=== PATIENT | male | born 1970 | race Caucasian/White ===

== ENCOUNTER → 2019-12-13 08:25 | Outpatient (BNVA) | payer OTHER, SELFPAY | PROVIDERS: Referring Provider Nurse Practitioner Family; Visit Provider Nurse Practitioner Family | DX: R06.02 Shortness of breath (principal); R05 Cough; J06.9 Acute upper respiratory infection, unspecified | CPT/HCPCS: 71046 ==

== ENCOUNTER 2021-05-12 13:01 | Inpatient (IN) | payer OTHER, SELFPAY ==
[2021-05-12] VITALS (20 sets, daily range): BP systolic 118–133; BP diastolic 77–93; PULSE 73–92; RESP 18–39; TEMP 36.5–36.8; O2SAT 87–97; BMI 26.0; BMI 26.5
--- NOTE | 2021-05-12 13:12 | W.ED.SOB ---
HPI - SOB/Dyspnea General: Chief Complaint: ER Hold Stated Complaint: SOB Time Seen by Provider: 05/12/21 13:02 History of Present Illness: HPI Narrative: 51-year-old male presents to the emergency room with complaint of sudden onset of shortness of breath last last approximately 12 hours. Patient was COVID positive at the beginning of the year on arrival here he is hypoxic with acute respiratory failure his O2 sat on nasal cannula at 4 to 6 L/min is 87 and 88% he has some right-sided chest discomfort. He continues to have a nonproductive cough. No radiation of pain into the neck or arms. He has no known history of coronary artery disease. He was seen earlier this week at another local hospital was diagnosed with pneumonia and treated with oral antibiotics. MD elicited complaint: shortness of breath and cough Onset (ago): week(s) (1) Context: recent illness (COVID) Timing: constant Severity: severe Exacerbating factors: exertion, movement and coughing Relieving factors: oxygen and rest Associated symptoms: Reports chest congestion, chest pain and cough; Deny abdominal pain, diaphoresis, dizziness, extremity pain, fever(s), hemoptysis, lightheadedness, myalgias, nausea, orthopnea, palpitations, paresthesias, polydipsia, polyuria, rash, sense of impending doom, syncope or vomiting Treatment prior to arrival: oxygen Review of Systems Const: Denies: fever(s) or diaphoresis ENMT: Denies: throat pain, ear or mastoid pain, nasal discharge or nasal congestion Card: Reports: chest pain; Denies: palpitations, lightheadedness, syncope or orthopnea Resp: Reports: dyspnea, non-productive cough, pain on inspiration and chest congestion; Denies: hemoptysis GI: Denies: abdominal pain, nausea or vomiting : Denies: flank pain, dysuria, urinary frequency or urinary urgency Musc: Denies: extremity pain Skin/Breast: Denies: rash or pruritus Neuro: Denies: dizziness Endo: Denies: polyuria or polydipsia PFS ED PFSH: Medical History Chronic nasal congestion Dizziness of unknown etiology Nasal congestion due to prolonged use of decongestants Shortness of breath Surgical History Hx of cholecystectomy Family History Other Hypertension Social History Smoking and tobacco status: never smoked Second hand smoke exposure: No Smoking risk assessment/counseling performed?: Yes Alcohol intake: never Lives independently: Yes Household members: none Marital status: service: No Current occupational status: employed 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 History of recent travel: No Current gender identity: Male Physical Exam Const: GENERAL APPEARANCE: cooperative and comfortable HENMT: COMMON NORMALS: normocephalic, atraumatic and hearing grossly normal bilaterally HEAD & SCALP: normocephalic and atraumatic Neck/C-Spine: COMMON NORMALS: no JVD Resp: EFFORT & INSPECTION: Yes respiratory distress and Yes labored AUSCULTATION: rhonchi and wheezes Cardio: COMMON NORMALS: no JVD, regular rate, regular rhythm and No murmurs present (Cardio) RATE: regular rate RHYTHM: regular rhythm GI: COMMON NORMALS: Soft to palpation and No hepatosplenomegaly present AUSCULTATION: Yes normoactive bowel sounds PALPATION: Yes Soft to palpation, No Tenderness to palpation present (GI), No Guarding due to palpation present (GI) and Yes No hepatosplenomegaly present Extremity: COMMON NORMALS: normal to inspection, capillary refill normal, no clubbing, cyanosis or edema, no calf tenderness and no pedal edema Skin: COMMON NORMALS: no rashes or lesions noted GENERAL SKIN EXAM: no rashes or lesions noted Course Vital Signs: Vital signs: Vital Signs Temperature 97.9 F 05/22/21 15:48 Pulse Rate 86 05/22/21 15:48 Respiratory Rate 18 05/22/21 15:48 Blood Pressure 117/65 05/22/21 15:48 Pulse Oximetry 92 05/22/21 15:48 MDM - SOB/Dyspnea MDM Narrative Medical decision making narrative: 88% on room air on presentation improved with nasal cannula at 4 L/min without that he was down to the 70s. We will go ahead and admit him on he heated high flow oxygen. Discussed with hospitalist orders written start remdesivir and dexamethasone Medical Records Attestation: I reviewed the patient's medical records. Lab Data Attestation: I reviewed the patient's lab results. Result diagrams: 05/22/21 04:55 05/22/21 04:55 Labs: Lab Results 05/12/21 05/12/21 05/12/21 13:15 13:15 13:15 WBC 9.0 10^3/uL 10^3/uL (4.0-10.0) RBC 5.48 10^6/uL H 10^6/uL (4.1-5.3) Hgb 16.2 g/dL g/dL (11.7-16.6) Hct 48.3 % % (42.0-52.0) MCV 88.1 fl fl (80-94) MCH 29.6 pg pg (28.0-34.0) MCHC 33.5 g/dL g/dL (30.0-36.0) RDW 12.2 % % (12.1-15.1) Plt Count 402 10^3/cmm H 10^3/cmm (130-400) MPV 10.0 fL fL (7.4-10.4) Neut % (Auto) 91.7 % % Lymph % (Auto) 3.6 % % [place] % (Auto) 3.8 % % Eos % (Auto) 0.0 % % Baso % (Auto) 0.1 % % Neut # (Auto) 8.21 10^3/uL H 10^3/uL (1.8-7.7) Lymph # (Auto) 0.3 10^3/uL L 10^3/uL (0.8-4.8) [place] # (Auto) 0.3 10^3/uL 10^3/uL (0.2-0.9) Eos # (Auto) 0.0 10^3/uL 10^3/uL (0.0-0.8) Baso # (Auto) 0.0 10^3/uL 10^3/uL (0.0-0.1) Nucleated RBC % (auto) 0 % % Nucleated RBCs # 0.0 /100WBC /100WBC Specimen Type Sample Site ABG pH ABG pCO2 ABG pO2 ABG HCO3 ABG O2 Saturation ABG Base Excess Kota Test A-a O2 Gradient Hematocrit Hgb O2 Saturation Carboxyhemoglobin Methemoglobin Total Hemoglobin Ionized Calcium O2 Delivery Device O2 Liters/Min FiO2 Medical Policy Specialist ID Sodium 140 mmol/L mmol/L (136-145) Potassium 4.6 mmol/L mmol/L (3.5-5.1) Chloride 104 mmol/L mmol/L (98-107) Carbon Dioxide 22 mmol/L mmol/L (22-29) Anion Gap 18.6 (5-19) BUN 17 mg/dL mg/dL (6-20) Creatinine 0.8 mg/dL mg/dL (0.7-1.2) GFR Calculation 101.9 mL/min mL/min (90-130) Glucose 99 mg/dL mg/dL (65-115) Calculated Osmolality 292 mOsm/kg mOsm/kg (285-295) Lactic Acid Calcium 8.3 mg/dL L mg/dL (8.5-10.5) Total Bilirubin 0.8 mg/dL mg/dL (0.15-1.2) AST 28 U/L U/L (0-40) ALT 68 U/L H U/L (0-41) Alkaline Phosphatase 106 IU/L IU/L (40-130) Troponin T Baseline 7 ng/L ng/L (0-15) Troponin T 120 Minute Delta Troponin T NT-Pro-B Natriuret Pep 395 pg/mL H pg/mL (0-125) Total Protein 6.0 g/dL L g/dL (6.6-8.7) Albumin 3.5 g/dL g/dL (3.5-5.2) Globulin 2.5 g/dL g/dL (1.3-4.6) 05/12/21 05/12/21 05/12/21 13:15 13:24 14:55 WBC RBC Hgb Hct MCV MCH MCHC RDW Plt Count MPV Neut % (Auto) Lymph % (Auto) [place] % (Auto) Eos % (Auto) Baso % (Auto) Neut # (Auto) Lymph # (Auto) [place] # (Auto) Eos # (Auto) Baso # (Auto) Nucleated RBC % (auto) Nucleated RBCs # Specimen Type Arterial Sample Site Brachial, right ABG pH 7.51 H (7.35-7.45) ABG pCO2 25.5 mmHg L mmHg (35-45) ABG pO2 53.0 mmHg L mmHg (80.0-100.0) ABG HCO3 20.4 mmol/L L mmol/L (22-26) ABG O2 Saturation 88.9 ABG Base Excess -0.8 mmol/L mmol/L (-2.0-2.0) Kota Test N/a A-a O2 Gradient 25.7 mmHg H mmHg (5-10) Hematocrit 49.9 % % (42-52) Hgb O2 Saturation 88.0 % L % (95-100) Carboxyhemoglobin 0.8 %THgb %THgb (0.4-20.1) Methemoglobin 0.3 % L % (0.4-1.5) Total Hemoglobin 16.3 g/dL g/dL (14-18) Ionized Calcium 1.2 mmol/L mmol/L (1.1-1.4) O2 Delivery Device Nc O2 Liters/Min 5.0 % % FiO2 40.0 % % Medical Policy Specialist ID Ed Sodium 139.0 mmol/L mmol/L (131-143) Potassium 4.1 mmol/L mmol/L (3.5-5.0) Chloride Carbon Dioxide Anion Gap BUN Creatinine GFR Calculation Glucose 108.0 mg/dL mg/dL (70-115) Calculated Osmolality Lactic Acid 1.6 mmol/L mmol/L (0.5-2.2) Calcium Total Bilirubin AST ALT Alkaline Phosphatase Troponin T Baseline Troponin T 120 Minute 6.80 ng/L ng/L (0-15) Delta Troponin T -0.20 ABS# L ABS# (0-10) NT-Pro-B Natriuret Pep Total Protein Albumin Globulin Discharge Plan Discharge Patient Disposition: Admitted As Inpatient Admit Provider: Diana Liu Clinical Impression: Pneumonia due to COVID-19 virus, Acute respiratory failure with hypoxia Condition: Stable Discharge Diet: Regular Discharge Activity: Resume usual activity Coding Level of Care Code ED 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
--- NOTE | 2021-05-12 13:13 | XRR_ITS ---
PROCEDURE INFORMATION: Exam: XR Chest Exam date and time: 05/12/2021 1:13 PM Age: 51 years old Clinical indication: Cough and shortness of breath. Recent COVID. Dyspnea. TECHNIQUE: Imaging protocol: XR of the chest. Views: 1 view. COMPARISON: CT angio chest PE prot [id number] 05/12/2021 1:52 PM FINDINGS: Lungs: There are extensive ground-glass and airspace opacities within the peripheral lungs bilaterally that are better appreciated on CT. These imaging findings are commonly reported imaging features of COVID 19 pneumonia. Other processes such as Influenza pneumonia and organizing pneumonia (as can be seen with connective tissue disease and drug toxicity) can cause a similar imaging pattern. No pulmonary consolidation. Pleural spaces: No pleural effusion. No pneumothorax. Heart/Mediastinum: The cardiac silhouette is unchanged. No gross evidence of pneumomediastinum. Bones/joints: No gross fracture. XR/XR chest 1V portable [id number] IMPRESSION: There are extensive ground-glass and airspace opacities within the peripheral lungs bilaterally that are better appreciated on CT. These imaging findings are commonly reported imaging features of COVID 19 pneumonia. Other processes such as Influenza pneumonia and organizing pneumonia (as can be seen with connective tissue disease and drug toxicity) can cause a similar imaging pattern.
--- NOTE | 2021-05-12 13:13 | CTR_ITS ---
PROCEDURE INFORMATION: Exam: CTA Chest With Contrast Exam date and time: 05/12/2021 1:13 PM Age: 51 years old Clinical indication: Shortness of breath. Recent COVID 19. Complains of shortness of breath, cough and fever. Acute respiratory failure with hypoxia. TECHNIQUE: Imaging protocol: Computed tomographic angiography of the chest with contrast. 3D rendering (Not supervised by radiologist): MIP and/or 3D reconstructed images were created by the technologist. Radiation optimization: All CT scans at this facility use at least one of these dose optimization techniques: automated exposure control; mA and/or kV adjustment per patient size (includes targeted exams where dose is matched to clinical indication); or iterative reconstruction. Contrast material: OMNI 350; Contrast volume: 71 ml; Contrast route: INTRAVENOUS (IV); COMPARISON: CR XR chest 2V* [id number] 12/13/2019 8:35 AM RADIATION DOSE METRICS: Total DLP (mGy-cm): 587.49 FINDINGS: Pulmonary arteries: Assessment for pulmonary embolus is compromised by streak artifact. No pulmonary embolus is identified. Aorta: There is aneurysmal dilatation of the ascending thoracic aorta measuring 4.0 x 4.3 cm. There is no gross evidence of rupture. No gross dissection. Lungs: There are extensive ground-glass and airspace opacities bilaterally.These imaging findings are commonly reported imaging features of COVID 19 pneumonia. Other processes such as Influenza pneumonia and organizing pneumonia (as can be seen with connective tissue disease and drug toxicity) can cause a similar imaging pattern. No pulmonary mass. Pleural spaces: No pleural effusion. No pneumothorax. Heart: No pericardial effusion. Lymph nodes: A right hilar lymph node measures 1.4 x 1.4 cm. A subcarinal lymph node measures 1.3 x 2.0 cm. A left hilar lymph node measures 1.2 x 1.4 cm. Diaphragm: Small hiatal hernia. Upper abdomen: The gallbladder has been removed. The spleen is enlarged measuring 14.5 cm. Bones/joints: Comminuted, mildly displaced fracture involving the anterior right 5th rib. Old fracture of the anterior right 4th rib. CT/CT angio chest PE protcl [id number] IMPRESSION: 1. Assessment for pulmonary embolus is compromised by streak artifact. No pulmonary embolus is identified. 2. There is aneurysmal dilatation of the ascending thoracic aorta measuring 4.0 x 4.3 cm. There is no gross evidence of rupture. No gross dissection. 3. There are extensive ground-glass and airspace opacities bilaterally.These imaging findings are commonly reported imaging features of COVID 19 pneumonia. Other processes such as Influenza pneumonia and organizing pneumonia (as can be seen with connective tissue disease and drug toxicity) can cause a similar imaging pattern. 4. Comminuted, mildly displaced fracture involving the anterior right 5th rib. 5. Mediastinal and bilateral hilar lymphadenopathy. 6. Splenomegaly.
--- NOTE | 2021-05-12 13:18 | PC.NURSE ---
Pt placed on continuous cardiac, BP, and O2 monitor at bedside.
[2021-05-12 13:21] LABS: Basophils % 0.1 %; Hematocrit 48.3 % (42.0-52.0); Hemoglobin 16.2 g/dL (11.7-16.6); Lymphocytes # 0.3 10^3/uL (0.8-4.8); Lymphocytes % 3.6 %; Mean Corpuscular HGB Conc 33.5 g/dL (30.0-36.0); Mean Corpuscular Hemoglobin 29.6 pg (28.0-34.0); Mean Corpuscular Volume 88.1 fl (80-94); Monocytes # 0.3 10^3/uL (0.2-0.9); Monocytes % 3.8 %; Neutrophils # 8.21 10^3/uL (1.8-7.7); Neutrophils % 91.7 %; Nucleated Red Blood Cells % 0 %; Platelet Count 402 10^3/cmm (130-400); Red Blood Count 5.48 10^6/uL (4.1-5.3); Red Cell Distribution Width 12.2 % (12.1-15.1)
[2021-05-12 13:34] LABS: ABG PCO2 25.5 mmHg (35-45); ABG PH Result 7.51 (7.35-7.45); Arterial Blood Gas Hematocrit 49.9 % (42-52); Base Excess ABG -0.8 mmol/L (-2.0-2.0); Blood Gas Sample Type Arterial; Carboxyhemoglobin 0.8 %THgb (0.4-20.1); HCO3 ABG 20.4 mmol/L (22-26); Ionized Calcium Level - ABG 1.2 mmol/L (1.1-1.4); Methemoglobin 0.3 % (0.4-1.5); Oxygen Saturation ABG 88.9; Potassium Level - ABG 4.1 mmol/L (3.5-5.0); Total Hemoglobin 16.3 g/dL (14-18)
[2021-05-12 13:35] LABS: Alveolar-Arterial Oxygen Gradi 25.7 mmHg (5-10); Blood Gas Operator Identificat ED; Blood Gas Sample Site Brachial, right; Oxygen Device NC
[2021-05-12 13:39] LABS: Troponin(5th) Baseline 7 ng/L (0-15)
[2021-05-12 13:40] LABS: Lactic Sepsis W/Reflex 1.6 mmol/L (0.5-2.2)
[2021-05-12 13:52] LABS: Alanine Aminotransferase 68 U/L (0-41); Albumin Level 3.5 g/dL (3.5-5.2); Alkaline Phosphatase 106 IU/L (40-130); Blood Urea Nitrogen 17 mg/dL (6-20); Calcium 8.3 mg/dL (8.5-10.5); Carbon Dioxide 22 mmol/L (22-29); Chloride 104 mmol/L (98-107); Globulin 2.5 g/dL (1.3-4.6); Glomerular Filtration Rate 101.9 mL/min (90-130); Glucose 99 mg/dL (65-115); NT Pro B Type Natriuretic Pept 395 pg/mL (0-125); Osmolality Calculated 292 mOsm/kg (285-295); Sodium 140 mmol/L (136-145); Total Bilirubin 0.8 mg/dL (0.15-1.2)
[2021-05-12 13:54] LABS: Anion Gap 18.6 (5-19); Aspartate Amino Transferase 28 U/L (0-40); Potassium 4.6 mmol/L (3.5-5.1)
[2021-05-12] MEDS: iohexol 350 mg/mL 100 mL Btl IV (13:56)
[2021-05-12] MEDS: dexamethasone 10 mg/mL INJ 6 MG IVP (15:53)
[2021-05-12] MEDS: piperacillin-tazobactam 3.375 GM in sodium chloride 0.9% (plus) 50 ML IV (15:53)
[2021-05-12] MEDS: remdesivir 200 MG in sodium chloride 0.9% (100 ml) 60 ML 100 MG IV (16:22)
[2021-05-12] MEDS: levofloxacin-dextrose 5 % 750 MG/150 ML PREMIX 100 MG IV (17:12)
--- NOTE | 2021-05-12 17:33 | PM.HP ---
Providers/Chief Complaint Admitting Physician: Diana Liu MD Chief Complaint: SOB History of Present Illness Saeed Thorpe is a 51 year old male with no significant PMH who presents to ED with dyspnea. Patient tested positive for COVID at [facility] approx 10-12 days ago. Patient noted to be worsening and presented to ED.No chest pain, no fever, no N,V, abdominal symptoms. Patient states he was given some antibiotics. He continued to get worse. Has diffuse myalgias and weakness Evaluation in ED significant for fairly unremarkable routine labs and ABG with ph of 7.51, PCO2 of 25 and PO2 of 52 on Fio2 of 40 percent and 5 L/min. CXR reveals extensive ground glass opacities bilaterally consistent with COVID infection. CTA is negative for PE- extensive infiltrates noted. Patient admitted for further management Patient states he is unvaccinated for COVID Review of Systems General: Reports: 10 or more systems reviewed and unremarkable except in HPI and below Medications/Allergies Home Medications Medication Instructions Recorded Confirmed Last Taken Type Motrin IB 200 mg tablet 200 mg PO Q12H PRN #10 tab NS MDD 02/15/20 05/12/21 Unknown Rx 400 mg fluticasone propionate 50 1 spray INTRANASAL BID #9.9 ml 02/15/20 05/12/21 Unknown Rx mcg/actuation nasal spray,suspension albuterol sulfate 90 mcg/actuation 2 puff INHALATION Q6H PRN #8.5 g 03/17/21 05/12/21 Unknown Rx aerosol inhaler [id number] 7.5 ml PO Q6H PRN #160 ml 03/17/21 05/12/21 Unknown Rx 2 mg-30 mg-10 mg/5 mL oral syrup cefuroxime axetil 500 mg PO BID 05/12/21 05/12/21 05/11/21 History escitalopram oxalate 10 mg PO DAILY 05/12/21 05/12/21 05/11/21 History pantoprazole 40 mg PO DAILY 05/12/21 05/12/21 05/11/21 History Allergies Allergy/AdvReac Type Severity Reaction Status Date / Time No Known Allergies Allergy Verified 06/17/20 11:44 PFSH Acute PFSH: Medical History Nasal congestion due to prolonged use of decongestants Family History Other Hypertension Social History Smoking and tobacco status: never smoked Second hand smoke exposure: No Smoking risk assessment/counseling performed?: Yes Alcohol intake: never Lives independently: Yes Household members: none Marital status: service: No Current occupational status: employed 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 History of recent travel: No Current gender identity: Male Vitals/I&O/Wt Last Vital Signs Temp 97.7 F 05/12/21 13:03 Pulse 80 05/12/21 17:13 Resp 28 H 05/12/21 17:13 BP 118/80 05/12/21 17:13 Pulse Ox 93 05/12/21 17:13 05/12/21 05/12/21 05/12/21 06:59 14:59 22:59 Intake Total 110 / 110 Balance 110 / 110 Weight last 48 hrs Weight 87.09 kg Physical Exam HENMT: COMMON NORMALS: normocephalic and atraumatic Neck/C-Spine: COMMON NORMALS: full ROM, supple and no JVD Chest: COMMONS NORMALS: normal inspection of the chest CHEST: Yes Symmetrical chest wall rise Resp: COMMON NORMALS: clear to auscultation bilaterally EFFORT & INSPECTION: Yes able to speak in complete sentences Cardio: COMMON NORMALS: regular rate, regular rhythm and No murmurs present (Cardio) GI: COMMON NORMALS: Normal to inspection, nondistended, normoactive bowel sounds present Extremity: COMMON NORMALS: normal to inspection and no clubbing, cyanosis or edema Neuro: COMMON NORMALS: patient oriented x3, no focal motor deficits and no sensory deficits noted Skin: COMMON NORMALS: no rashes or lesions noted Data : 05/13/21 05:13 05/13/21 05:13 Micro: Microbiology 05/12/21 13:35 Blood Culture - Preliminary Blood SPECIMEN COLLECTED 05/12/21 13:38 Blood Culture - Preliminary Blood SPECIMEN COLLECTED A&P Assessment and plan (1) Acute hypoxemic respiratory failure due to COVID-19: Patient presents with dyspnea, and is COVID positive. Patient noted to have severe hypoxia with PO2 on ABG of 53. Patient placed on high flow oxygen at FIO2 of 40 percent.CTA with extensive groundglass opacities consistent with COVID infection Decadron 6 mg IV X 10 days, stop date 05/21/21 Remdesivir x 5 days, stop date 05/16/21 He has received a dose of zosyn and levaquin in ED. 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
--- NOTE | 2021-05-12 19:13 | ECG_ITS ---
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
--- NOTE | 2021-05-12 19:33 | PC.NURSE ---
bedside report received, transporting to floor soon.
--- NOTE | 2021-05-12 20:21 | PC.NURSE ---
Admit Note Patient admitted to CT from ED via stretcher. Covering service notified. Patient presents with dry cough, sob. Orders reviewed & will continue to monitor. Patient and/or safety representative oriented to environment, equipment, and informed of the following as found in the admission booklet: patient rights & responsibilities, visitor policy, hand and respiratory hygiene practice. Other education includes: Oxygen safety, medications, activity orders. Patient and/or safety representative verbalized understanding of all teaching.
[2021-05-12 20:24] LABS: Troponin 5 6HR 7.03 ng/L (0-15); Troponin 5 6HR Delta 0.03 ng/L (0-12)
[2021-05-12] MEDS: enoxaparin 40 mg/0.4 mL Syringe SUBCUT (21:24)
[2021-05-13] VITALS (13 sets, daily range): BP systolic 123–136; BP diastolic 56–86; PULSE 58–79; RESP 18–24; TEMP 36.4–36.8; O2SAT 90–95
[2021-05-13] MEDS: HYDROcodone-acetaminophen 7.5-325 mg Tablet 1 TAB PO ×2 (05:10→22:15)
[2021-05-13 05:33] LABS: Basophils % 0.1 %; Hematocrit 42.5 % (42.0-52.0); Hemoglobin 14.5 g/dL (11.7-16.6); Lymphocytes # 0.4 10^3/uL (0.8-4.8); Lymphocytes % 4.4 %; Mean Corpuscular HGB Conc 34.1 g/dL (30.0-36.0); Mean Corpuscular Hemoglobin 29.5 pg (28.0-34.0); Mean Corpuscular Volume 86.6 fl (80-94); Mean Platelet Volume 10.3 fL (7.4-10.4); Monocytes # 0.4 10^3/uL (0.2-0.9); Monocytes % 4.2 %; Neutrophils # 8.23 10^3/uL (1.8-7.7); Neutrophils % 90.4 %; Nucleated Red Blood Cells % 0 %; Platelet Count 403 10^3/cmm (130-400); Red Blood Count 4.91 10^6/uL (4.1-5.3); Red Cell Distribution Width 12.1 % (12.1-15.1); White Blood Count 9.1 10^3/uL (4.0-10.0)
[2021-05-13 06:13] LABS: Anion Gap 18.3 (5-19); Blood Urea Nitrogen 23 mg/dL (6-20); Calcium 8.5 mg/dL (8.5-10.5); Carbon Dioxide 19 mmol/L (22-29); Chloride 102 mmol/L (98-107); Glucose 120 mg/dL (65-115); Osmolality Calculated 285 mOsm/kg (285-295); Potassium 4.3 mmol/L (3.5-5.1); Sodium 135 mmol/L (136-145)
[2021-05-13] MEDS: pantoprazole DR 40 mg Tablet PO (08:05)
[2021-05-13] MEDS: escitalopram 10 mg Tablet PO (08:05)
--- NOTE | 2021-05-13 10:46 | PM.PN ---
Subjective Subjective: Interval history: Patient weak, has c/o dyspnea and cough as well as pleuritic type chest discomfort. Appetite decreased. Medications: Reviewed: Yes Vitals/I&O/Wt Last Vital Signs Temp 98.2 F 05/13/21 08:03 Pulse 79 05/13/21 09:03 Resp 20 H 05/13/21 09:03 BP 126/85 05/13/21 08:03 Pulse Ox 92 05/13/21 09:03 05/12/21 05/13/21 05/13/21 22:59 06:59 14:59 Intake Total 410 / 410 150 / 560 480 / 480 Output Total 400 / 400 775 / 1175 Balance -625 / -615 480 / 480 Weight last 48 hrs Weight 88.813 kg Weight 87.09 kg Physical Exam Narrative: EXAM NARRATIVE: ill appearing, oriented and in mild distress Const: COMMON NORMALS: patient oriented x3 GENERAL APPEARANCE: cooperative HENMT: COMMON NORMALS: normocephalic and atraumatic HEAD & SCALP: normocephalic and atraumatic Neck/C-Spine: COMMON NORMALS: full ROM and supple Resp: EFFORT & INSPECTION: Yes tachypneic and Yes Actively coughing AUSCULTATION: rhonchi lower bilaterally Cardio: COMMON NORMALS: regular rate, regular rhythm, S1 normal heart sound present, S2 normal heart sound present and No murmurs present (Cardio) RATE: regular rate RHYTHM: regular rhythm HEART SOUNDS: S1 normal heart sound present and S2 normal heart sound present GI: COMMON NORMALS: Soft to palpation, non-tender and no masses PALPATION: Yes Soft to palpation Extremity: COMMON NORMALS: normal to inspection, no calf tenderness and no pedal edema Neuro: COMMON NORMALS: patient oriented x3, moves all extremities and no sensory deficits noted Psych: COMMON NORMALS: mental status grossly normal, Normal thought process present and speech normal SPEECH: Yes normal speech THOUGHT PROCESS: Normal thought process present Skin: COMMON NORMALS: no rashes or lesions noted and no wounds GENERAL SKIN EXAM: no rashes or lesions noted Data : 05/13/21 05:13 05/13/21 05:13 Micro: Microbiology 05/12/21 13:35 Blood Culture - Preliminary Blood SPECIMEN COLLECTED 05/12/21 13:38 Blood Culture - Preliminary Blood SPECIMEN COLLECTED A&P Assessment and plan (1) Acute hypoxemic respiratory failure due to COVID-19: Patient presents with dyspnea, and is COVID positive. Patient noted to have severe hypoxia with PO2 on ABG of 53 on arrival to ED. CTA negative for pulmonary embolism, has extensive ground glass opacities consistent with COVID infection. Patient continues to require supplemental oxygen at 40 L/min with 40 percent FIO2 Decadron 6 mg IV X 10 days, stop date 05/21/21 Remdesivir x 5 days, stop date 05/16/21 Afebrile. Procalcitonin ordered- do not think he needs antibiotic coverage- he did receive one dose of zosyn and levaquin in ED Patient unvaccinated for COVID. Continue nebs, supportive care and appropriate isolation precautions At high risk of further deterioration and may require intubation Status: Acute Attestations Medical Necessity Statement*: Patient requires ongoing hospital stay for acute respiratory failure with hypoxia secondary to severe COVID. 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 Fwd History Detailed Exam Detailed Medical Decision Making Moderate Complexity Diagnoses Acute hypoxemic respiratory failure due to COVID-19 U07.1; J96.01
[2021-05-13 12:32] LABS: Procalcitonin 0.29 ng/mL (0-0.5)
[2021-05-13] MEDS: remdesivir 100 MG in sodium chloride 0.9% (100 ml) 80 ML IV (15:48)
[2021-05-13] MEDS: dexamethasone 10 mg/mL INJ 6 MG IVP (18:18)
[2021-05-13] MEDS: enoxaparin 40 mg/0.4 mL Syringe SUBCUT (18:18)
[2021-05-14] VITALS (18 sets, daily range): BP systolic 113–131; BP diastolic 47–88; PULSE 57–107; RESP 18–28; TEMP 36.4–36.9; O2SAT 78–98
[2021-05-14] MEDS: escitalopram 10 mg Tablet PO (07:59)
[2021-05-14] MEDS: pantoprazole DR 40 mg Tablet PO (07:59)
[2021-05-14] MEDS: ipratropium-albuterol 3 mL Neb INHALATION ×3 (08:53→20:24)
[2021-05-14] MEDS: benzonatate 100 mg Capsule 200 MG PO ×3 (10:46→21:55)
[2021-05-14] MEDS: ALPRAZolam 0.5 mg Tablet PO (11:42)
[2021-05-14] MEDS: nicotine 21 mg Patch 1 PATCH TRANSDERMA (15:15)
--- NOTE | 2021-05-14 16:25 | PC.RESP ---
PATIENT STATES THAT HE HAS DILIGENTLY BEEN USING THE IS AND ACAPELLA
[2021-05-14] MEDS: remdesivir 100 MG in sodium chloride 0.9% (100 ml) 80 ML IV (17:33)
[2021-05-14] MEDS: enoxaparin 40 mg/0.4 mL Syringe SUBCUT (17:33)
[2021-05-14] MEDS: dexamethasone 10 mg/mL INJ 6 MG IVP (17:33)
--- NOTE | 2021-05-14 18:59 | P.PN_ITS ---
Subjective Subjective: Interval history: He has been coughing. Gets very easily drained with exertion. Worsened hypoxia today, required increase up to 60% FiO2. Discussed with him additional options with consideration of baricitinib. He stated he would like to for now wait, discussed the risks and benefits. Reassess again tomorrow or day after. Discussed also with his sister. Vitals/I&O/Wt Last Vital Signs Temp 97.6 F 05/14/21 15:26 Pulse 95 05/14/21 16:26 Resp 28 H 05/14/21 16:20 BP 125/84 05/14/21 15:26 Pulse Ox 93 05/14/21 16:20 05/14/21 05/14/21 05/14/21 06:59 14:59 22:59 Intake Total 360 / 360 320 / 680 Output Total 900 / 2000 250 / 250 Balance -900 / -1440 110 / 110 320 / 430 Weight last 48 hrs Weight 88.813 kg Physical Exam Const: COMMON NORMALS: no acute distress and patient oriented x3 GENERAL APPEARANCE: ill appearing OTHER: Coughing intermittently. HENMT: COMMON NORMALS: oropharynx normal Neck/C-Spine: COMMON NORMALS: no JVD Resp: COMMON NORMALS: normal respiratory effort and clear to auscultation bilaterally AUSCULTATION: clear to auscultation bilaterally Cardio: COMMON NORMALS: no JVD, regular rhythm, S1 normal heart sound present, S2 normal heart sound present and No murmurs present (Cardio) RHYTHM: regular rhythm HEART SOUNDS: S1 normal heart sound present and S2 normal heart sound present GI: COMMON NORMALS: Normal to inspection, nondistended, normoactive bowel sounds present, Soft to palpation and non-tender PALPATION: Yes Soft to palpation Extremity: COMMON NORMALS: no joint enlargement and no pedal edema Neuro: COMMON NORMALS: patient oriented x3 and moves all extremities Skin: COMMON NORMALS: no rashes or lesions noted GENERAL SKIN EXAM: no ra shes or lesions noted Data : 05/13/21 05:13 05/13/21 05:13 Micro: Microbiology 05/12/21 13:38 Blood Culture - Preliminary Blood NEGATIVE TO DATE 05/12/21 13:35 Blood Culture - Preliminary Blood NEGATIVE TO DATE A&P Assessment and plan (1) Acute hypoxemic respiratory failure due to COVID-19: Here for now declines baricitinib, would like to reassess again in a day or 2. We will follow-up CRP, follow-up D-dimer. Continue oxygen support. Continue Decadron, remdesivir. Escalate antitussives given bouts of severe cough. Lovenox VT prophylaxis. Supportive care. Status: Acute Attestations Medical Necessity Statement*: Continue admission for hypoxic respiratory failure secondary to severe COVID-19. 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
[2021-05-14] MEDS: HYDROcodone-acetaminophen 7.5-325 mg Tablet 1 TAB PO (21:55)
[2021-05-15] VITALS (17 sets, daily range): BP systolic 106–137; BP diastolic 58–82; PULSE 64–89; RESP 18–22; TEMP 36.5–36.7; O2SAT 92–99
[2021-05-15] MEDS: HYDROcodone-acetaminophen 7.5-325 mg Tablet 1 TAB PO ×3 (03:14→21:33)
[2021-05-15 07:26] LABS: Basophils % 0.1 %; Eosinophils % 0.1 %; Hematocrit 46.3 % (42.0-52.0); Hemoglobin 15.6 g/dL (11.7-16.6); Lymphocytes # 0.7 10^3/uL (0.8-4.8); Lymphocytes % 6.6 %; Mean Corpuscular HGB Conc 33.7 g/dL (30.0-36.0); Mean Corpuscular Hemoglobin 29.7 pg (28.0-34.0); Mean Platelet Volume 10.2 fL (7.4-10.4); Monocytes # 0.7 10^3/uL (0.2-0.9); Monocytes % 6.7 %; Neutrophils # 8.67 10^3/uL (1.8-7.7); Neutrophils % 85.3 %; Nucleated Red Blood Cells % 0 %; Platelet Count 513 10^3/cmm (130-400); Red Blood Count 5.26 10^6/uL (4.1-5.3); Red Cell Distribution Width 12.2 % (12.1-15.1); White Blood Count 10.2 10^3/uL (4.0-10.0)
[2021-05-15 07:41] LABS: D Dimer 0.68 ug/mIFEU (0-0.59)
[2021-05-15 07:55] LABS: Alanine Aminotransferase 77 U/L (0-41); Albumin Level 3.1 g/dL (3.5-5.2); Alkaline Phosphatase 97 IU/L (40-130); Anion Gap 16.4 (5-19); Aspartate Amino Transferase 34 U/L (0-40); Blood Urea Nitrogen 22 mg/dL (6-20); C Reactive Protein 35.7 mg/L (0.0-4.9); Calcium 8.7 mg/dL (8.5-10.5); Carbon Dioxide 20 mmol/L (22-29); Chloride 101 mmol/L (98-107); Globulin 3.3 g/dL (1.3-4.6); Glomerular Filtration Rate 101.9 mL/min (90-130); Glucose 121 mg/dL (65-115); Osmolality Calculated 281 mOsm/kg (285-295); Potassium 4.4 mmol/L (3.5-5.1); Sodium 133 mmol/L (136-145); Total Bilirubin 0.5 mg/dL (0.15-1.2); Total Protein 6.4 g/dL (6.6-8.7)
[2021-05-15] MEDS: ipratropium-albuterol 3 mL Neb INHALATION ×2 (07:56→14:51)
[2021-05-15] MEDS: escitalopram 10 mg Tablet PO (09:28)
[2021-05-15] MEDS: benzonatate 100 mg Capsule 200 MG PO ×3 (09:28→21:30)
[2021-05-15] MEDS: pantoprazole DR 40 mg Tablet PO (09:28)
[2021-05-15] MEDS: nicotine 21 mg Patch 1 PATCH TRANSDERMA (09:28)
[2021-05-15] MEDS: remdesivir 100 MG in sodium chloride 0.9% (100 ml) 80 ML IV (16:58)
[2021-05-15] MEDS: dexamethasone 10 mg/mL INJ 6 MG IVP (18:09)
[2021-05-15] MEDS: enoxaparin 40 mg/0.4 mL Syringe SUBCUT (18:09)
--- NOTE | 2021-05-15 20:53 | P.PN_ITS ---
Subjective Subjective: Interval history: Becoming very hypoxic with basic exertion. Requested to proceed with baricitinib. Cough slightly better. No chest pain. No nausea vomiting or diarrhea. Vitals/I&O/Wt Last Vital Signs Temp 97.7 F 05/15/21 19:08 Pulse 82 05/15/21 19:08 Resp 18 05/15/21 19:08 BP 118/82 05/15/21 19:08 Pulse Ox 96 05/15/21 19:08 05/15/21 05/15/21 05/15/21 06:59 14:59 22:59 Intake Total 480 / 480 80 / 560 Output Total 1240 / 1890 250 / 250 280 / 530 Balance -1240 / -1210 230 / 230 -200 / 30 Physical Exam Const: COMMON NORMALS: no acute distress and patient oriented x3 GENERAL APPEARANCE: ill appearing HENMT: COMMON NORMALS: oropharynx normal Neck/C-Spine: COMMON NORMALS: no JVD Resp: COMMON NORMALS: normal respiratory effort and clear to auscultation bilaterally AUSCULTATION: clear to auscultation bilaterally Cardio: COMMON NORMALS: no JVD, regular rhythm, S1 normal heart sound present, S2 normal heart sound present and No murmurs present (Cardio) RHYTHM: regular rhythm HEART SOUNDS: S1 normal heart sound present and S2 normal heart sound present GI: COMMON NORMALS: Normal to inspection, nondistended, normoactive bowel sounds present, Soft to palpation and non-tender PALPATION: Yes Soft to palpation Extremity: COMMON NORMALS: no joint enlargement and no pedal edema Neuro: COMMON NORMALS: patient oriented x3 and moves all extremities Skin: COMMON NORMALS: no rashes or lesions noted GENERAL SKIN EXAM: no rashes or lesions noted Data : 05/15/21 07:15 05/15/21 07:15 A&P Assessment and plan (1) Acute hypoxemic respiratory failure due to COVID-19: Given severe easy desaturation with minimal activity, she requested to start baricitinib today which was initiated. Continue Decadron, remdesivir. We will follow-up CRP, follow-up D-dimer. Continue oxygen support. Continue Decadron, remdesivir. Lovenox VT prophylaxis. Supportive care. Status: Acute Attestations Medical Necessity Statement*: Continue admission for assessment management of hypoxic respiratory failure with severe COVID-19. Coding Level of Care Code Acute Actuarial Associate for [facility] Diagnoses Acute hypoxemic respiratory failure due to COVID-19 U07.1; J96.01
--- NOTE | 2021-05-15 21:23 | PC.NURSE ---
1929 Shift report received from Nahomy PHAM. Patient in bed/awake. Denies pain No s/s of pain or discomfort. IV patent/SL. O2 6L NC. No needs voiced at this time.
--- NOTE | 2021-05-15 21:41 | PC.NURSE ---
1914 Shift report received from Courtney PHAM. Patient awake up in chair. Cardiac monitoring present. O2 45/55. IV patent/SL. No needs voiced at this time
[2021-05-16] VITALS (16 sets, daily range): BP systolic 93–124; BP diastolic 57–83; PULSE 63–94; RESP 18–25; TEMP 36.4–37.1; O2SAT 87–98
--- NOTE | 2021-05-16 01:15 | PC.NURSE ---
Patient up in chair /sleeping. No s/s of pain or discomfort. No needs noted at this time.
--- NOTE | 2021-05-16 03:20 | PC.NURSE ---
0310 pulse 154 per tele monitor/ patient is on a continuos pulse ox / pulse was 76 upon entering. Patient stated he had just brushed his teeth prior to this nurse entering. No needs noted at this time
--- NOTE | 2021-05-16 05:02 | PC.NURSE ---
Patient up in chair/awake. Patient verbalizes pain in chest/feeling anxious/ declines PRN at this time.
[2021-05-16 06:16] LABS: Basophils % 0.2 %; Hematocrit 47.6 % (42.0-52.0); Hemoglobin 15.9 g/dL (11.7-16.6); Lymphocytes # 0.7 10^3/uL (0.8-4.8); Mean Corpuscular HGB Conc 33.4 g/dL (30.0-36.0); Mean Corpuscular Hemoglobin 29.7 pg (28.0-34.0); Mean Platelet Volume 10.3 fL (7.4-10.4); Monocytes # 0.4 10^3/uL (0.2-0.9); Monocytes % 4.7 %; Neutrophils # 7.87 10^3/uL (1.8-7.7); Neutrophils % 84.8 %; Nucleated Red Blood Cells % 0 %; Platelet Count 525 10^3/cmm (130-400); Red Blood Count 5.35 10^6/uL (4.1-5.3); Red Cell Distribution Width 12.1 % (12.1-15.1); White Blood Count 9.3 10^3/uL (4.0-10.0)
[2021-05-16 06:33] LABS: Alanine Aminotransferase 74 U/L (0-41); Albumin Level 3.3 g/dL (3.5-5.2); Alkaline Phosphatase 99 IU/L (40-130); Anion Gap 14.3 (5-19); Aspartate Amino Transferase 19 U/L (0-40); Blood Urea Nitrogen 22 mg/dL (6-20); C Reactive Protein 18.4 mg/L (0.0-4.9); Calcium 8.5 mg/dL (8.5-10.5); Carbon Dioxide 25 mmol/L (22-29); Chloride 99 mmol/L (98-107); Glomerular Filtration Rate 101.9 mL/min (90-130); Glucose 135 mg/dL (65-115); Osmolality Calculated 283 mOsm/kg (285-295); Potassium 4.3 mmol/L (3.5-5.1); Sodium 134 mmol/L (136-145); Total Bilirubin 0.4 mg/dL (0.15-1.2); Total Protein 6.3 g/dL (6.6-8.7)
[2021-05-16] MEDS: benzonatate 100 mg Capsule 200 MG PO ×3 (09:03→21:36)
[2021-05-16] MEDS: pantoprazole DR 40 mg Tablet PO (09:03)
[2021-05-16] MEDS: escitalopram 10 mg Tablet PO (09:03)
[2021-05-16] MEDS: nicotine 21 mg Patch 1 PATCH TRANSDERMA (09:04)
[2021-05-16] MEDS: ipratropium-albuterol 3 mL Neb INHALATION ×2 (13:16→21:03)
--- NOTE | 2021-05-16 17:39 | PC.NURSE ---
PTS SISTER REFUSED TO LEAVE WHEN ASKED, CONTINUED TO IGNORE RN. SHE GAVE PT CLOTHES AND EXITED THE ROOOM. STATES SHE WILL BE BACK TOMORROW. EDUC HER ON VISTOR POLICY AND SHE STATED SHE DIDNT CARE WHAT THE POLICY WAS, THAT IF SHE WANTED TO VISIT THE PT SHE WOULD. DR. ALANIS DID NOT APPROVE PT FOR VISITORS.
[2021-05-16] MEDS: HYDROcodone-acetaminophen 7.5-325 mg Tablet 1 TAB PO (17:43)
[2021-05-16] MEDS: enoxaparin 40 mg/0.4 mL Syringe SUBCUT (17:46)
[2021-05-16] MEDS: dexamethasone 10 mg/mL INJ 6 MG IVP (17:46)
--- NOTE | 2021-05-16 18:33 | P.PN_ITS ---
Subjective Subjective: Interval history: Significantly desaturated after insisted on using the commode. Discussed with him again to be very cautious given how easily he may desaturate, and may put himself in dangerous position. For now placing on bedrest and discussed this with him in detail. He verbalized understanding. He is feeling better. We have come down on his FiO2 which was increased up as high as 95% down to 65% currently and he is saturating 94%. No headache. Mild diarrhea which she states caused his perianal area to become raw. Vitals/I&O/Wt Last Vital Signs Temp 97.9 F 05/16/21 15:00 Pulse 80 05/16/21 15:00 Resp 20 H 05/16/21 15:00 BP 115/76 05/16/21 15:00 Pulse Ox 96 05/16/21 15:00 05/16/21 05/16/21 05/16/21 06:59 14:59 22:59 Intake Total 480 / 480 Output Total 500 / 1730 Balance -500 / -1170 480 / 480 Physical Exam Const: COMMON NORMALS: no acute distress and patient oriented x3 GENERAL APPEARANCE: ill appearing OTHER: Coughing intermittently. HENMT: COMMON NORMALS: oropharynx normal Neck/C-Spine: COMMON NORMALS: no JVD Resp: COMMON NORMALS: normal respiratory effort and clear to auscultation bilaterally AUSCULTATION: clear to auscultation bilaterally Cardio: COMMON NORMALS: no JVD, regular rhythm, S1 normal heart sound present, S2 normal heart sound present and No murmurs present (Cardio) RHYTHM: regular rhythm HEART SOUNDS: S1 normal heart sound present and S2 normal heart sound present GI: COMMON NORMALS: Normal to inspection, nondistended, normoactive bowel sounds present, Soft to palpation and non-tender PALPATION: Yes Soft to palpation Extremity: COMMON NORMALS: no joint enlargement and no pedal edema Neuro: COMMON NORMALS: patient oriented x3 and moves all extremities Skin: COMMON NORMALS: no rashes or lesions noted GENERAL SKIN EXAM: no rashes or lesions noted Data : 05/16/21 05:56 05/16/21 05:56 A&P Assessment and plan (1) Acute hypoxemic respiratory failure due to COVID-19: Continue Decadron, remdesivir, baricitinib. Place on bedrest. Continue oxygen support. Lovenox VT prophylaxis. Supportive care. Status: Acute Attestations Medical Necessity Statement*: Continue admission for hypoxic respiratory failure with severe COVID-19. Coding Level of Care Code Acute Meat Department Manager for [facility] Diagnoses Acute hypoxemic respiratory failure due to COVID-19 U07.1; J96.01
[2021-05-16] MEDS: remdesivir 100 MG in sodium chloride 0.9% (100 ml) 80 ML IV (19:18)
--- NOTE | 2021-05-16 20:27 | PC.NURSE ---
Shift report received from Chirag PHAM. Patient up in chair/awake. Verbalizes minor discomfort/declines PRN at this time. Education provided to call staff prior to getting up/ patient verbalized understanding. IV patent infusing remdesivir at this time. O2 40/50. No other needs voiced at this time.
[2021-05-16] MEDS: ALPRAZolam 0.5 mg Tablet PO (21:40)
[2021-05-17] VITALS (20 sets, daily range): BP systolic 98–111; BP diastolic 59–76; PULSE 64–101; RESP 16–22; TEMP 36.4–36.7; O2SAT 90–96
[2021-05-17] MEDS: ipratropium-albuterol 3 mL Neb INHALATION ×5 (00:31→23:18)
--- NOTE | 2021-05-17 03:34 | PC.NURSE ---
Patient in bed/awake/ c/o of sweating. Snack provided per request. No other needs voiced at this time. O2 sat 93%.
[2021-05-17 05:05] LABS: Basophils % 0.3 %; Eosinophils % 0.1 %; Hematocrit 48.7 % (42.0-52.0); Hemoglobin 16.5 g/dL (11.7-16.6); Lymphocytes # 0.8 10^3/uL (0.8-4.8); Lymphocytes % 7.1 %; Mean Corpuscular HGB Conc 33.9 g/dL (30.0-36.0); Mean Corpuscular Hemoglobin 29.9 pg (28.0-34.0); Mean Corpuscular Volume 88.2 fl (80-94); Mean Platelet Volume 10.2 fL (7.4-10.4); Monocytes # 0.4 10^3/uL (0.2-0.9); Monocytes % 3.2 %; Neutrophils % 85.8 %; Nucleated Red Blood Cells % 0 %; Platelet Count 569 10^3/cmm (130-400); Red Blood Count 5.52 10^6/uL (4.1-5.3); Red Cell Distribution Width 12.1 % (12.1-15.1); White Blood Count 11.8 10^3/uL (4.0-10.0)
[2021-05-17 05:26] LABS: D Dimer 0.72 ug/mIFEU (0-0.59)
[2021-05-17 05:32] LABS: Alkaline Phosphatase 102 IU/L (40-130); Aspartate Amino Transferase 17 U/L (0-40); Globulin 3.2 g/dL (1.3-4.6); Potassium 4.7 mmol/L (3.5-5.1)
[2021-05-17 06:11] LABS: Calcium 8.9 mg/dL (8.5-10.5); Carbon Dioxide 26 mmol/L (22-29); Glomerular Filtration Rate 101.9 mL/min (90-130); Total Bilirubin 0.5 mg/dL (0.15-1.2)
[2021-05-17 06:13] LABS: Alanine Aminotransferase 57 U/L (0-41); Albumin Level 3.2 g/dL (3.5-5.2); Anion Gap 16.7 (5-19); Blood Urea Nitrogen 24 mg/dL (6-20); Chloride 97 mmol/L (98-107); Glucose 127 mg/dL (65-115); Osmolality Calculated 286 mOsm/kg (285-295); Sodium 135 mmol/L (136-145); Total Protein 6.4 g/dL (6.6-8.7)
[2021-05-17] MEDS: benzonatate 100 mg Capsule 200 MG PO ×3 (08:51→20:11)
[2021-05-17] MEDS: pantoprazole DR 40 mg Tablet PO (08:51)
[2021-05-17] MEDS: ALPRAZolam 0.5 mg Tablet PO (08:51)
[2021-05-17] MEDS: escitalopram 10 mg Tablet PO (08:51)
--- NOTE | 2021-05-17 11:12 | PC.NURSE ---
Dr. Alonso notified this nurse to discontinue contact/droplet precautions due to duration of COVID and meeting needs to discontinue, see ORDERS for further details, informed patient and patient aware able to have visitors now.
--- NOTE | 2021-05-17 11:16 | PC.NURSE ---
patient reports having diarrhea but unable to use BSC or bedpan due to embarrassment, states, This has taken all my dignity. This nurse provided reassurance.
[2021-05-17] MEDS: enoxaparin 40 mg/0.4 mL Syringe SUBCUT (18:11)
[2021-05-17] MEDS: dexamethasone 10 mg/mL INJ 6 MG IVP (18:11)
--- NOTE | 2021-05-17 20:06 | PC.NURSE ---
Shift report received from Estella PHAM. Patient in bed/watching TV. O2 40/40. IV patent/SL. Requests pain medication and snack. No other needs voiced at this time.
[2021-05-17] MEDS: HYDROcodone-acetaminophen 7.5-325 mg Tablet 1 TAB PO (20:12)
--- NOTE | 2021-05-17 20:22 | P.PN_ITS ---
Subjective Subjective: Interval history: Today he reports he is doing slightly better. He is not dyspneic. No chest pain or pressure. No nausea vomiting, no further diarrhea. No headache. Reports symptoms started on 04/21. Vitals/I&O/Wt Last Vital Signs Temp 97.6 F 05/17/21 14:59 Pulse 81 05/17/21 19:42 Resp 20 H 05/17/21 19:32 BP 109/74 05/17/21 14:59 Pulse Ox 93 05/17/21 19:32 05/17/21 05/17/21 05/17/21 06:59 14:59 22:59 Intake Total 320 / 1360 956 / 956 240 / 1196 Output Total 600 / 1125 550 / 550 200 / 750 Balance -280 / 235 406 / 406 40 / 446 Physical Exam Const: COMMON NORMALS: no acute distress and patient oriented x3 GENERAL APPEARANCE: ill appearing HENMT: COMMON NORMALS: oropharynx normal Neck/C-Spine: COMMON NORMALS: no JVD Resp: COMMON NORMALS: normal respiratory effort and clear to auscultation bilaterally AUSCULTATION: clear to auscultation bilaterally Cardio: COMMON NORMALS: no JVD, regular rhythm, S1 normal heart sound present, S2 normal heart sound present and No murmurs present (Cardio) RHYTHM: regular rhythm HEART SOUNDS: S1 normal heart sound present and S2 normal heart sound present GI: COMMON NORMALS: Normal to inspection, nondistended, normoactive bowel sounds present, Soft to palpation and non-tender PALPATION: Yes Soft to palpation Extremity: COMMON NORMALS: no joint enlargement and no pedal edema Neuro: COMMON NORMALS: patient oriented x3 and moves all extremities Skin: COMMON NORMALS: no rashes or lesions noted GENERAL SKIN EXAM: no rashes or lesions noted Data : 05/17/21 04:55 05/17/21 04:55 Micro: Microbiology 05/12/21 13:35 Blood Culture - Final Blood NO GROWTH AFTER 5 DAYS 05/12/21 13:38 Blood Culture - Final Blood NO GROWTH AFTER 5 DAYS A&P Assessment and plan (1) Acute hypoxemic respiratory failure due to COVID-19: Today he is showing some improvement. FiO2 requirement is down to 40%. PT assessment. Continue Decadron, remdesivir, baricitinib. Symptoms started on 04/21. Discontinue isolation. Continue oxygen support. Lovenox VT prophylaxis. Supportive care. Status: Acute Attestations Medical Necessity Statement*: Continue admission for hypoxic respiratory failure with severe COVID-19. Coding Level of Care Code Acute Senior Research Executive for [facility] Diagnoses Acute hypoxemic respiratory failure due to COVID-19 U07.1; J96.01
[2021-05-18] VITALS (21 sets, daily range): BP systolic 107–124; BP diastolic 69–87; PULSE 67–94; RESP 18–26; TEMP 36.4–36.7; O2SAT 93–97
--- NOTE | 2021-05-18 00:28 | PC.NURSE ---
Patient in bed/awake. patient c/o of feeling itchy and jitter declines PRN at this time. No other needs voiced at this time.
[2021-05-18] MEDS: ipratropium-albuterol 3 mL Neb INHALATION ×6 (03:37→23:34)
[2021-05-18] MEDS: escitalopram 10 mg Tablet PO (08:45)
[2021-05-18] MEDS: benzonatate 100 mg Capsule 200 MG PO ×3 (08:45→20:02)
[2021-05-18] MEDS: pantoprazole DR 40 mg Tablet PO (08:45)
[2021-05-18] MEDS: HYDROcodone-acetaminophen 7.5-325 mg Tablet 1 TAB PO ×2 (08:49→18:36)
--- NOTE | 2021-05-18 14:54 | PC.CHAP ---
Pastoral Care Encounter/Spiritual Assessment Type of Contact [] Declined matchbook maker visit [] Patient/Family/Request visit [] Outpatient visit [xx] Follow-up visit [] Physician referral [] Code/Alert [xx] Routine visit [] Staff referral [] Actively dying [] Patient sleeping [] Family support [] [] Out of room [] Palliative care [] [] Receiving care in room [] Pre-surgical visit [] Trauma [xx] Long length of stay [] ICU visit [] Other: Relational/Emotional Strength [xx] Patient feels connected with others/family/visitors/staff [] Distress [] Loneliness/isolation [] Abandonment Spirituality of Patient [xx] Person of Elsie [] Attends Jainism of their Elsie [xx] Believes in Prayer [xx] Reads Bible or Mormonism materials [] There are Spiritual issues to be addressed Signs Sales Representative Interventions [xx] Prayer [xx] Active listening [xx] Non-anxious presence [] Spiritual/emotional support [] Crisis/trauma care [] Spiritual counseling [] Bereavement support [] Provided bereavement packet [] Provided Bible/devotional materials [] Provided toy/stuffed animal, coloring book to patient or family member [] Provided Communion [] Anointing/[place] [] Salvation [xx] Completed spiritual assessment [] Other: Impact on Illness or Injury [] Angry [] Fearful [] Anxious [] Often cries [] Exhaustion [] Unable to work [] Unable to attend anglican [] Unable to walk/stand [] Unable to read [] Unable to drive [] Unable to eat/drink [] Unable to sleep [xx] Unable to be with family [] Patient intubated [] Other: Summary Patient stated he is being treated for covid-like symptoms but is not isolated at this time. Patient stated he is not feeling great but is better that he was. He was sitting up eating lunch. Time spent with patient 4 minutes
[2021-05-18] MEDS: dexamethasone 10 mg/mL INJ 6 MG IVP (17:37)
[2021-05-18] MEDS: enoxaparin 40 mg/0.4 mL Syringe SUBCUT (17:37)
--- NOTE | 2021-05-18 20:37 | P.PN_ITS ---
Subjective Subjective: Interval history: He feels slightly better today. He worked with physical therapy. Still desaturating easily, but overall feels a little stronger. Denies headache, nausea or vomiting. No further diarrhea. Vitals/I&O/Wt Last Vital Signs Temp 98.0 F 05/18/21 16:00 Pulse 73 05/18/21 19:55 Resp 18 05/18/21 19:55 BP 124/79 05/18/21 16:00 Pulse Ox 93 05/18/21 19:55 05/18/21 05/18/21 05/18/21 06:59 14:59 22:59 Intake Total 360 / 1556 236 / 236 Output Total 1000 / 1750 275 / 275 Balance -640 / -194 -39 / -39 Physical Exam Const: COMMON NORMALS: no acute distress and patient oriented x3 GENERAL APPEARANCE: ill appearing HENMT: COMMON NORMALS: oropharynx normal Neck/C-Spine: COMMON NORMALS: no JVD Resp: COMMON NORMALS: normal respiratory effort and clear to auscultation bilaterally AUSCULTATION: clear to auscultation bilaterally Cardio: COMMON NORMALS: no JVD, regular rhythm, S1 normal heart sound present, S2 normal heart sound present and No murmurs present (Cardio) RHYTHM: regular rhythm HEART SOUNDS: S1 normal heart sound present and S2 normal heart sound present GI: COMMON NORMALS: Normal to inspection, nondistended, normoactive bowel sounds present, Soft to palpation and non-tender PALPATION: Yes Soft to palpation Extremity: COMMON NORMALS: no joint enlargement and no pedal edema Neuro: COMMON NORMALS: patient oriented x3 and moves all extremities Skin: COMMON NORMALS: no rashes or lesions noted GENERAL SKIN EXAM: no rashes or lesions noted Data : 05/17/21 04:55 05/17/21 04:55 A&P Assessment and plan (1) Acute hypoxemic respiratory failure due to COVID-19: FiO2 requirement has not improved further, but subjectively is feeling a little bit better. Worked with PT. Continue Decadron, completed remdesivir, continue baricitinib. Symptoms started on 04/21. Off isolation. Continue oxygen support. Lovenox VT prophylaxis. Supportive care. Status: Acute Attestations Medical Necessity Statement*: Continue admission for hypoxic respiratory failure with severe COVID-19. Coding Level of Care Code Acute Lithographic Plate Maker Apprentice for [facility] Diagnoses Acute hypoxemic respiratory failure due to COVID-19 U07.1; J96.01
[2021-05-19] VITALS (14 sets, daily range): BP systolic 115–144; BP diastolic 69–85; PULSE 77–111; RESP 16–20; TEMP 36.3–36.9; O2SAT 89–96
[2021-05-19] MEDS: ipratropium-albuterol 3 mL Neb INHALATION ×4 (03:33→19:55)
[2021-05-19 06:25] LABS: Basophils % 0.3 %; Hemoglobin 16.8 g/dL (11.7-16.6); Lymphocytes # 0.6 10^3/uL (0.8-4.8); Lymphocytes % 5.2 %; Mean Corpuscular HGB Conc 34.3 g/dL (30.0-36.0); Mean Corpuscular Hemoglobin 29.6 pg (28.0-34.0); Mean Corpuscular Volume 86.4 fl (80-94); Mean Platelet Volume 10.7 fL (7.4-10.4); Monocytes # 0.6 10^3/uL (0.2-0.9); Monocytes % 5.2 %; Neutrophils # 9.97 10^3/uL (1.8-7.7); Neutrophils % 85.7 %; Nucleated Red Blood Cells % 0 %; Platelet Count 589 10^3/cmm (130-400); Red Blood Count 5.67 10^6/uL (4.1-5.3); Red Cell Distribution Width 11.9 % (12.1-15.1); White Blood Count 11.6 10^3/uL (4.0-10.0)
[2021-05-19 06:38] LABS: D Dimer 0.52 ug/mIFEU (0-0.59)
[2021-05-19 06:53] LABS: Alanine Aminotransferase 44 U/L (0-41); Albumin Level 3.3 g/dL (3.5-5.2); Alkaline Phosphatase 90 IU/L (40-130); Anion Gap 20.1 (5-19); Aspartate Amino Transferase 16 U/L (0-40); Blood Urea Nitrogen 21 mg/dL (6-20); Calcium 9.7 mg/dL (8.5-10.5); Carbon Dioxide 22 mmol/L (22-29); Chloride 97 mmol/L (98-107); Globulin 3.2 g/dL (1.3-4.6); Glomerular Filtration Rate 101.9 mL/min (90-130); Glucose 132 mg/dL (65-115); Osmolality Calculated 285 mOsm/kg (285-295); Potassium 4.1 mmol/L (3.5-5.1); Sodium 135 mmol/L (136-145); Total Bilirubin 0.3 mg/dL (0.15-1.2); Total Protein 6.5 g/dL (6.6-8.7)
[2021-05-19] MEDS: escitalopram 10 mg Tablet PO (09:16)
[2021-05-19] MEDS: pantoprazole DR 40 mg Tablet PO (09:16)
[2021-05-19] MEDS: benzonatate 100 mg Capsule 200 MG PO ×3 (09:16→20:13)
[2021-05-19] MEDS: acetaminophen 325 mg Tablet 650 MG PO (14:44)
[2021-05-19] MEDS: enoxaparin 40 mg/0.4 mL Syringe SUBCUT (18:33)
[2021-05-19] MEDS: dexamethasone 10 mg/mL INJ 6 MG IVP (18:33)
[2021-05-19] MEDS: HYDROcodone-acetaminophen 7.5-325 mg Tablet 1 TAB PO (19:25)
--- NOTE | 2021-05-19 21:07 | PM.PN ---
Subjective Subjective: Interval history: Gets very winded with exertion, but at rest does well. Cough improving. Diarrhea resolved. Vitals/I&O/Wt Last Vital Signs Temp 97.7 F 05/19/21 19:17 Pulse 91 05/19/21 20:08 Resp 18 05/19/21 19:55 BP 122/76 05/19/21 19:17 Pulse Ox 93 05/19/21 19:55 05/19/21 05/19/21 05/19/21 06:59 14:59 22:59 Output Total 800 / 1475 640 / 640 Balance -800 / -759 -640 / -640 Physical Exam Const: COMMON NORMALS: no acute distress and patient oriented x3 GENERAL APPEARANCE: ill appearing HENMT: COMMON NORMALS: oropharynx normal Neck/C-Spine: COMMON NORMALS: no JVD Resp: COMMON NORMALS: normal respiratory effort and clear to auscultation bilaterally AUSCULTATION: clear to auscultation bilaterally Cardio: COMMON NORMALS: no JVD, regular rhythm, S1 normal heart sound present, S2 normal heart sound present and No murmurs present (Cardio) RHYTHM: regular rhythm HEART SOUNDS: S1 normal heart sound present and S2 normal heart sound present GI: COMMON NORMALS: Normal to inspection, nondistended, normoactive bowel sounds present, Soft to palpation and non-tender PALPATION: Yes Soft to palpation Extremity: COMMON NORMALS: no joint enlargement and no pedal edema Neuro: COMMON NORMALS: patient oriented x3 and moves all extremities Skin: COMMON NORMALS: no rashes or lesions noted GENERAL SKIN EXAM: no rashes or lesions noted Data : 05/19/21 05:45 05/19/21 05:45 A&P Assessment and plan (1) Acute hypoxemic respiratory failure due to COVID-19: Oxygenation at rest quite significantly improving. With exertion gets very dyspneic, desaturates easily. If oxygenation continues to do better as currently, possible discharge, but not be able to discharge by himself given severe exertional intolerance at this time. Continue Decadron, completed remdesivir, continue baricitinib. Symptoms started on 04/21. Off isolation. Continue oxygen support. Lovenox VT prophylaxis. Supportive care. Status: Acute Attestations Medical Necessity Statement*: Continue admission for assessment of management of hypoxic respiratory failure with severe COVID-19. Coding Level of Care Code Acute Personal Care Home Administrator for [facility] Diagnoses Acute hypoxemic respiratory failure due to COVID-19 U07.1; J96.01
[2021-05-20] VITALS (15 sets, daily range): BP systolic 101–131; BP diastolic 66–83; PULSE 70–94; RESP 16–20; TEMP 36.4–36.8; O2SAT 90–96
--- NOTE | 2021-05-20 03:05 | PC.NURSE ---
Assumed pt care: Report given from RN to this nurse and assumed pt care at this time. Patient is resting in bed with no signs of distress, on 2L NC with SPO2 98% via CURTAIN ROLLER ASSEMBLER.
[2021-05-20] MEDS: ipratropium-albuterol 3 mL Neb INHALATION ×4 (03:55→20:29)
--- NOTE | 2021-05-20 05:26 | PC.NURSE ---
Weaned to RA: With 0400 rounding the pt was on RA with SPO2 at 93%, said he had taken it off approx an hour earlier. Feels well enough to shower. Took a shower and was SOB afterwards with SPO2 at 88%. O2 applied and eventually came up to 91%. Back on RA now with SPO2 at 90-91%.
[2021-05-20 06:48] LABS: Basophils % 0.3 %; Eosinophils # 0.1 10^3/uL (0.0-0.8); Eosinophils % 0.6 %; Hematocrit 48.6 % (42.0-52.0); Hemoglobin 16.5 g/dL (11.7-16.6); Lymphocytes # 1.4 10^3/uL (0.8-4.8); Lymphocytes % 12.8 %; Mean Corpuscular Hemoglobin 30.3 pg (28.0-34.0); Mean Corpuscular Volume 89.2 fl (80-94); Mean Platelet Volume 10.5 fL (7.4-10.4); Monocytes # 0.8 10^3/uL (0.2-0.9); Monocytes % 7.3 %; Neutrophils # 8.08 10^3/uL (1.8-7.7); Neutrophils % 75.2 %; Nucleated Red Blood Cells % 0 %; Platelet Count 498 10^3/cmm (130-400); Red Blood Count 5.45 10^6/uL (4.1-5.3); Red Cell Distribution Width 12.3 % (12.1-15.1); White Blood Count 10.8 10^3/uL (4.0-10.0)
[2021-05-20 07:13] LABS: Alanine Aminotransferase 41 U/L (0-41); Albumin Level 3.4 g/dL (3.5-5.2); Alkaline Phosphatase 90 IU/L (40-130); Anion Gap 17.3 (5-19); Aspartate Amino Transferase 17 U/L (0-40); Blood Urea Nitrogen 21 mg/dL (6-20); Calcium 8.5 mg/dL (8.5-10.5); Carbon Dioxide 24 mmol/L (22-29); Chloride 97 mmol/L (98-107); Globulin 2.7 g/dL (1.3-4.6); Glucose 89 mg/dL (65-115); Osmolality Calculated 280 mOsm/kg (285-295); Potassium 4.3 mmol/L (3.5-5.1); Sodium 134 mmol/L (136-145); Total Bilirubin 0.4 mg/dL (0.15-1.2); Total Protein 6.1 g/dL (6.6-8.7)
[2021-05-20] MEDS: pantoprazole DR 40 mg Tablet PO (10:03)
[2021-05-20] MEDS: benzonatate 100 mg Capsule 200 MG PO ×3 (10:03→20:34)
[2021-05-20] MEDS: escitalopram 10 mg Tablet PO (10:03)
[2021-05-20] MEDS: HYDROcodone-acetaminophen 7.5-325 mg Tablet 1 TAB PO ×2 (12:33→20:34)
[2021-05-20] MEDS: enoxaparin 40 mg/0.4 mL Syringe SUBCUT (18:14)
[2021-05-20] MEDS: dexamethasone 10 mg/mL INJ 6 MG IVP (18:16)
--- NOTE | 2021-05-20 19:38 | PC.NURSE ---
Shift report received from Chirag PHAM. Patient in bed/watching TV. Rates back pain at a 7/10. O2 PRN/ RA at this time/O2 sats 96%. IV patent/SL. No needs voiced at this timel
--- NOTE | 2021-05-20 20:56 | P.PN_ITS ---
Subjective Subjective: Interval history: Breathing continues to improve, he is doing well while at rest, but with severe exertional limitation with difficulty getting up to edge of bed and transferring any significant distance. He otherwise is doing well without headache, nausea vomiting or diarrhea. Denies chest pain or pressure. Cough occasionally triggered but otherwise continuing to improve. Vitals/I&O/Wt Last Vital Signs Temp 97.7 F 05/20/21 19:45 Pulse 90 05/20/21 20:41 Resp 16 05/20/21 20:29 BP 131/83 05/20/21 19:45 Pulse Ox 91 05/20/21 20:29 05/20/21 05/20/21 05/20/21 06:59 14:59 22:59 Intake Total 980 / 980 480 / 480 Output Total 735 / 1375 Balance 245 / -395 480 / 480 Physical Exam Const: COMMON NORMALS: no acute distress and patient oriented x3 GENERAL APPEARANCE: ill appearing HENMT: COMMON NORMALS: oropharynx normal Neck/C-Spine: COMMON NORMALS: no JVD Resp: COMMON NORMALS: normal respiratory effort and clear to auscultation bilaterally AUSCULTATION: clear to auscultation bilaterally Cardio: COMMON NORMALS: no JVD, regular rhythm, S1 normal heart sound present, S2 normal heart sound present and No murmurs present (Cardio) RHYTHM: regular rhythm HEART SOUNDS: S1 normal heart sound present and S2 normal heart sound present GI: COMMON NORMALS: Normal to inspection, nondistended, normoactive bowel sounds present, Soft to palpation and non-tender PALPATION: Yes Soft to palpation Extremity: COMMON NORMALS: no joint enlargement and no pedal edema Neuro: COMMON NORMALS: patient oriented x3 and moves all extremities Skin: COMMON NORMALS: no rashes or lesions noted GENERAL SKIN EXAM: no r ashes or lesions noted Data : 05/20/21 06:10 05/20/21 06:10 A&P Assessment and plan (1) Acute hypoxemic respiratory failure due to COVID-19: At rest doing quite well, but with severe exertional limitation/dyspnea/ exhaustion. Given significance of limitation, him living alone, sister being out of town, discussed with him consideration of rehabilitation at SNF and he would be agreeable for consideration. CM submitting documentation. Continue Decadron, completed remdesivir, continue baricitinib. Symptoms started on 04/21. Off isolation. Continue oxygen support. Lovenox VT prophylaxis. Supportive care. Status: Acute Attestations Medical Necessity Statement*: Continue admission for treatment of severe COVID-19, disposition arrangements for discharge due to severe exertional intolerance. Coding Level of Care Code Acute Digital Recruiter for [facility] Diagnoses Acute hypoxemic respiratory failure due to COVID-19 U07.1; J96.01
[2021-05-21] VITALS (17 sets, daily range): BP systolic 108–123; BP diastolic 71–85; PULSE 85–127; RESP 16–26; TEMP 36.4–37.6; O2SAT 87–95
[2021-05-21] MEDS: ipratropium-albuterol 3 mL Neb INHALATION ×6 (03:21→23:46)
--- NOTE | 2021-05-21 04:12 | PC.NURSE ---
Patient c/o of feeling anxious No PRN available. O2 sat on RA 88%. Education provided to use O2 2L for half hour. O2 sat 90% on 2L. Patient had been up recently to bathroom.
[2021-05-21] MEDS: LORazepam 2 mg Tablet PO (05:25)
--- NOTE | 2021-05-21 05:28 | PC.NURSE ---
O2 86-87% on 2L / increased to 2.5L O2 89%. Education provided for patient to conserve oxygen use and use urinal at this time instead of getting up to bathroom. Verbalized understanding.
[2021-05-21 05:51] LABS: Basophils % 0.1 %; Eosinophils % 0.1 %; Hematocrit 47.7 % (42.0-52.0); Hemoglobin 16.5 g/dL (11.7-16.6); Lymphocytes # 0.7 10^3/uL (0.8-4.8); Lymphocytes % 8.6 %; Mean Corpuscular HGB Conc 34.6 g/dL (30.0-36.0); Mean Corpuscular Hemoglobin 30.2 pg (28.0-34.0); Mean Corpuscular Volume 87.4 fl (80-94); Mean Platelet Volume 10.6 fL (7.4-10.4); Monocytes # 0.2 10^3/uL (0.2-0.9); Neutrophils # 7.37 10^3/uL (1.8-7.7); Neutrophils % 86.4 %; Nucleated Red Blood Cells % 0 %; Platelet Count 568 10^3/cmm (130-400); Red Blood Count 5.46 10^6/uL (4.1-5.3); Red Cell Distribution Width 12.1 % (12.1-15.1); White Blood Count 8.5 10^3/uL (4.0-10.0)
[2021-05-21 06:22] LABS: Alanine Aminotransferase 46 U/L (0-41); Albumin Level 3.6 g/dL (3.5-5.2); Alkaline Phosphatase 91 IU/L (40-130); Anion Gap 20.5 (5-19); Aspartate Amino Transferase 18 U/L (0-40); Blood Urea Nitrogen 19 mg/dL (6-20); Calcium 9.7 mg/dL (8.5-10.5); Carbon Dioxide 21 mmol/L (22-29); Chloride 97 mmol/L (98-107); Globulin 3.1 g/dL (1.3-4.6); Glomerular Filtration Rate 118.9 mL/min (90-130); Glucose 127 mg/dL (65-115); Osmolality Calculated 282 mOsm/kg (285-295); Potassium 4.5 mmol/L (3.5-5.1); Sodium 134 mmol/L (136-145); Total Bilirubin 0.5 mg/dL (0.15-1.2); Total Protein 6.7 g/dL (6.6-8.7)
[2021-05-21] MEDS: benzonatate 100 mg Capsule 200 MG PO ×3 (08:57→21:21)
[2021-05-21] MEDS: pantoprazole DR 40 mg Tablet PO (08:58)
[2021-05-21] MEDS: escitalopram 10 mg Tablet PO (08:58)
[2021-05-21] MEDS: nicotine 21 mg Patch 1 PATCH TRANSDERMA (08:58)
--- NOTE | 2021-05-21 12:56 | ECG_ITS ---
[facility] Test Date: 2021-05-21 Pat Name: Saeed Thorpe Department: Room: 264 Gender: Male Shop Tech: : [id number] Requested By: Tyrel Moore Order Number: [id number] Zachary MD: Lake Sandoval M.D. Measurements Intervals [place] Rate: 134 P: 11 DC: 146 QRS: 11 QRSD: 77 T: 18 QT: 284 QTc: 425 Interpretive Statements SINUS TACHYCARDIA ABNORMAL RHYTHM ECG Compared to ECG 05/12/2021 13:29:39 Sinus rhythm no longer present Electronically Signed On 05-21-2021 23:55:40 DIRECT MARKETING SPECIALIST by Lake Sandoval M.D. [id number]
--- NOTE | 2021-05-21 12:57 | XR_ITS ---
WS: [id number] PORTABLE CHEST HISTORY: covid COMPARISON: 05/12/2021 Lung volumes are decreased. Interstitial thickening greatest throughout the mid and lower lung [place] and greatest on the LEFT. Very similar to the prior study. No pneumomediastinum. No pleural effusion or pneumothorax. Cardiac size: Normal. Mediastinum/Aorta: Normal mediastinum. No osseous abnormality seen. Prior cholecystectomy. XR/XR chest 1V portable 31621 IMPRESSION: 1. Decreased lung volumes due to poor inspiration. 2. Bilateral interstitial infiltrates without significant improvement.
[2021-05-21 13:47] LABS: Thyroid Stimulating Hormone 1.01 uIU/mL (0.27-4.20)
[2021-05-21 13:51] LABS: NT Pro B Type Natriuretic Pept 68 pg/mL (0-125); Procalcitonin 0.05 ng/mL (0-0.5)
[2021-05-21] MEDS: zinc gluconate 50 mg Tablet PO (13:58)
[2021-05-21] MEDS: metoprolol tartrate 25 mg Tablet PO ×3 (13:58→21:21)
[2021-05-21] MEDS: FUROsemide 10 mg/mL SDV 4mL 40 MG IVP (14:09)
[2021-05-21 14:10] LABS: Iron 243 ug/dL (59-158); Percent Saturation 69.4 % (20-50); Total Iron Binding Capacity 350 mcg/dl; Unsaturated Iron Binding 107 ug/dL (112-347)
--- NOTE | 2021-05-21 17:14 | PM.PN ---
Subjective Subjective: Interval history: Hospital course, labs appreciated. On examination patient sitting up in bed. Patient had taken the oxygen off and was in respiratory distress with saturation down in mid 80s with heart rate up in 130s. On review patient's heart rate has remained more than 110 since today morning. Patient has been refusing to wear the telemetry. Discussed in detail regarding taking with slow. Continuing the oxygen supplementation. Need of telemetry. Patient is understandable and is agreeable. Medications: Reviewed: Yes Vitals/I&O/Wt Last Vital Signs Temp 99.6 F 05/21/21 14:00 Pulse 107 H 05/21/21 15:56 Resp 18 05/21/21 15:53 BP 123/85 05/21/21 14:00 Pulse Ox 92 05/21/21 15:53 05/21/21 05/21/21 05/21/21 06:59 14:59 22:59 Intake Total 350 / 830 600 / 600 Output Total 225 / 225 Balance 125 / 605 600 / 600 Physical Exam Narrative: EXAM NARRATIVE: In acute distress, hypoxia while off oxygen Const: COMMON NORMALS: no acute distress and patient oriented x3 GENERAL APPEARANCE: cooperative and ill appearing OTHER: Coughing intermittently. HENMT: COMMON NORMALS: normocephalic, atraumatic and oropharynx normal HEAD & SCALP: normocephalic and atraumatic Neck/C-Spine: COMMON NORMALS: full ROM, supple and no JVD Chest: COMMONS NORMALS: normal inspection of the chest CHEST: Yes Symmetrical chest wall rise Resp: COMMON NORMALS: normal respiratory effort and clear to auscultation bilaterally EFFORT & INSPECTION: Yes able to speak in complete sentences, Yes tachypneic and Yes Actively coughing AUSCULTATION: clear to auscultation bilaterally and rhonchi lower bilaterally Cardio: COMMON NORMALS: no JVD, regular rate, regular rhythm, S1 normal heart sound present, S2 normal heart sound present and No murmurs present (Cardio) RATE: regular rate RHYTHM: regular rhythm HEART SOUNDS: S1 normal heart sound present and S2 normal heart sound present GI: COMMON NORMALS: Normal to inspection, nondistended, normoactive bowel sounds present, Soft to palpation, non-tender and no masses PALPATION: Yes Soft to palpation Extremity: COMMON NORMALS: normal to inspection, no joint enlargement, no clubbing, cyanosis or edema, no calf tenderness and no pedal edema Neuro: COMMON NORMALS: patient oriented x3, moves all extremities, no focal motor deficits and no sensory deficits noted Psych: COMMON NORMALS: mental status grossly normal, Normal thought process present and speech normal SPEECH: Yes normal speech THOUGHT PROCESS: Normal thought process present Skin: COMMON NORMALS: no rashes or lesions noted and no wounds GENERAL SKIN EXAM: no rashes or lesions noted Data : 05/21/21 05:22 05/21/21 05:22 A&P Assessment and plan (1) Acute hypoxemic respiratory failure due to COVID-19: Status: Acute (2) Anxiety: Status: Acute (3) Tachycardia: Status: Acute Additional A&P Information Hypoxia secondary to COVID-19 pneumonia: Mild to moderate disease. Improving. Currently on 5 L. Oxygen supplementation keeping saturation over 88%. Dexamethasone 6 mg daily. Remdesivir course of 5 days. Currently on baricitinib. Day /14. Vitamin C, zinc. DuoNebs every 6 hour, budesonide twice daily. D-dimer, CRP every 48 hours Pulmonary toilet with incentive spirometry flutter valve. We will monitor inflammatory markers including D-dimer and CRP every 48 hours. CTA negative for pulmonary embolism. Continue Lovenox at prophylactic dose. Will monitor for anemia or blood loss. Sputum culture pending. Check procalcitonin, proBNP. Urinalysis, urine Legionella bacterial antigen. Low suspicion of bacterial infection for now. For now hold off on antibiotics. Given hypoxia will try to keep patient as negative as possible. Check echocardiogram. IV Lasix 40 mg once. Strict input output charting, daily weights. Tachycardia: Could be secondary to hypoxia. Will rule out atrial fibrillation. EKG. We will do anticoagulation as per PE. Telemetry. DVT prophylaxis- lovenox GI prophylaxis- protonix Code status- Full At rest doing quite well, but with severe exertional limitation/dyspnea/exhaustion. Given significance of limitation, him living alone, sister being out of town, discussed with him consideration of rehabilitation at SNF and he would be agreeable for consideration. CM submitting documentation. Attestations Medical Necessity Statement*: Requires further hospitalization for management of hypoxia secondary COVID-19 while safe discharge planning is sought. Time Spent in Patient Care: Greater than 35 minutes (>than 50% of time spent in counselling and/or direct pt care on unit). Coding Level of Care Code Acute Rotating Equipment Specialist for g Fwd Diagnoses Acute hypoxemic respiratory failure due to COVID-19 U07.1; J96.01 Anxiety F41.9 Tachycardia R00.0
[2021-05-21] MEDS: dexamethasone 10 mg/mL INJ 6 MG IVP (18:15)
[2021-05-21] MEDS: HYDROcodone-acetaminophen 7.5-325 mg Tablet 1 TAB PO (18:23)
[2021-05-21 18:24] LABS: Add Urine Microscopic? NO; Charge for UA Resulting for Rev
[2021-05-21] MEDS: ferrous gluconate 324 mg Tablet PO (18:24)
[2021-05-21] MEDS: enoxaparin 40 mg/0.4 mL Syringe SUBCUT (18:24)
[2021-05-21] MEDS: ascorbic acid 500 mg Tablet 1000 MG PO (18:24)
[2021-05-21 18:29] LABS: Bilirubin Urine Neg (Negative); Blood Urine Neg (Negative); Glucose Urine UA Norm (Normal); Ketones Urine Negative (Negative); Leukocyte Esterase Urine Negative (Negative); Nitrate Urine Negative (Negative); Protein Urine Neg (Negative); Urine Appearance Clear (CLEAR); Urine Color Straw (Yellow); Urobilinogen Urine Norm (Negative); pH Urine 6.5 (5-7)
--- NOTE | 2021-05-21 19:16 | PC.NURSE ---
Shift report received from Lisa VILLAR. Patient in bed watching TV. O2 5L. IV patent/SL. PRN pain medication administer recently rates pain at a 7/10. No needs voiced at this time.
[2021-05-21] MEDS: budesonide 0.5 mg/2 mL Neb INHALATION (20:04)
[2021-05-21] MEDS: hyDROXYzine 25 mg Capsule PO (22:10)
[2021-05-21] MEDS: trazodone 50 mg Tablet PO (22:52)
[2021-05-22] VITALS (15 sets, daily range): BP systolic 104–120; BP diastolic 65–74; PULSE 81–101; RESP 16–18; TEMP 36.4–36.8; O2SAT 82–95
--- NOTE | 2021-05-22 00:58 | PC.NURSE ---
Patient in bed resting quickly. No s/s of pain or discomfort. No needs noted at this time
[2021-05-22 06:34] LABS: Basophils % 0.1 %; Hematocrit 47.7 % (42.0-52.0); Hemoglobin 16.2 g/dL (11.7-16.6); Lymphocytes # 0.9 10^3/uL (0.8-4.8); Lymphocytes % 6.2 %; Mean Corpuscular Hemoglobin 30.1 pg (28.0-34.0); Mean Corpuscular Volume 88.7 fl (80-94); Mean Platelet Volume 10.7 fL (7.4-10.4); Monocytes # 0.6 10^3/uL (0.2-0.9); Monocytes % 3.8 %; Neutrophils # 13.02 10^3/uL (1.8-7.7); Neutrophils % 88.3 %; Nucleated Red Blood Cells % 0 %; Platelet Count 521 10^3/cmm (130-400); Red Blood Count 5.38 10^6/uL (4.1-5.3); Red Cell Distribution Width 12.4 % (12.1-15.1); White Blood Count 14.7 10^3/uL (4.0-10.0)
[2021-05-22] MEDS: HYDROcodone-acetaminophen 7.5-325 mg Tablet 1 TAB PO ×2 (06:47→20:42)
[2021-05-22 06:50] LABS: Alanine Aminotransferase 43 U/L (0-41); Albumin Level 3.4 g/dL (3.5-5.2); Alkaline Phosphatase 92 IU/L (40-130); Aspartate Amino Transferase 19 U/L (0-40); Blood Urea Nitrogen 27 mg/dL (6-20); C Reactive Protein 0.8 mg/L (0.0-4.9); Calcium 8.5 mg/dL (8.5-10.5); Carbon Dioxide 22 mmol/L (22-29); Chloride 98 mmol/L (98-107); Chol HDL Ratio 3.37 mg/dL (1.0-5.00); Cholesterol 175 mg/dL (0-200); Globulin 2.7 g/dL (1.3-4.6); Glomerular Filtration Rate 78.8 mL/min (90-130); Glucose 158 mg/dL (65-115); HDL Cholesterol 52 mg/dL (60-100); LDL Cholesterol Calculated 88 mg/dL (50-129); Osmolality Calculated 288 mOsm/kg (285-295); Sodium 135 mmol/L (136-145); Total Bilirubin 0.4 mg/dL (0.15-1.2); Total Protein 6.1 g/dL (6.6-8.7); Triglycerides 175 mg/dL (0-150); VLDL Cholestrol Calculation 35 mg/dL (0-30)
[2021-05-22 06:51] LABS: Anion Gap 19.8 (5-19); Potassium 4.8 mmol/L (3.5-5.1)
[2021-05-22 07:00] LABS: Estmated Average Glucose 126
[2021-05-22 07:16] LABS: D Dimer 0.33 ug/mIFEU (0-0.59)
[2021-05-22] MEDS: ferrous gluconate 324 mg Tablet PO ×2 (07:58→16:56)
[2021-05-22] MEDS: pantoprazole DR 40 mg Tablet PO (07:58)
[2021-05-22] MEDS: benzonatate 100 mg Capsule 200 MG PO ×3 (07:58→20:42)
[2021-05-22] MEDS: escitalopram 10 mg Tablet PO (07:58)
[2021-05-22] MEDS: zinc gluconate 50 mg Tablet PO (07:59)
[2021-05-22] MEDS: ascorbic acid 500 mg Tablet 1000 MG PO ×2 (07:59→16:56)
[2021-05-22] MEDS: nicotine 21 mg Patch 1 PATCH TRANSDERMA (07:59)
[2021-05-22] MEDS: ALPRAZolam 0.5 mg Tablet PO ×2 (07:59→20:42)
[2021-05-22] MEDS: metoprolol tartrate 25 mg Tablet PO ×2 (07:59→20:44)
[2021-05-22] MEDS: FUROsemide 40 mg Tablet PO (12:35)
--- NOTE | 2021-05-22 12:58 | USCV_ITS ---
Saeed Thorpe Age: 51 Gender: M : 1970 Exam Date: 05/22/2021 06:11 Ordering Phys: Tyrel Moore MD Technologist: KAYLEIGH Exam Location: [facility] – [place] Indication: TACHY, COVID, HYPOXIA BP: 120 / 74 HR: 81 Rhythm: Sinus Technical Quality: Technically difficult study MEASUREMENTS (Male / Female) Normal Values 2D ECHO LV Diastolic Diameter PLAX 3.6 cm 4.2 - 5.9 / 3.9 - 5.3 cm LV Systolic Diameter PLAX 2.5 cm IVS Diastolic Thickness 1.1 cm 0.6 - 1.0 / 0.6 - 0.9 cm IVS Systolic Thickness 1.3 cm LVPW Diastolic Thickness 1.6 cm 0.6 - 1.0 / 0.6 - 0.9 cm LVPW Systolic Thickness 1.5 cm LVOT Diameter 2.0 cm LV Ejection Fraction 2D Teich 57.3 % LV Ejection Fraction MOD 2C 40.6 % LV Ejection Fraction 2C AL 41.6 % LA Diameter 3.4 cm Aorta at Sinotubular Diameter 2.8 cm M-MODE Aortic Annulus Diameter 3.3 cm LA Ao Ratio MM 1.1 MV E Point Septal Separation 0.4 cm DOPPLER AV Peak Velocity 71.0 cm/s LVOT Peak Velocity 64.0 cm/s AV Area Cont Eq vti 3.3 cm squared AV Area Cont Eq pk 3.0 cm squared MV Area PHT 5.1 cm squared Mitral E to A Ratio 0.9 MV E' Velocity 27.5 cm/s Mitral E to MV E' Ratio 6.8 Mitral E to LV E' Lateral Ratio 5.2 Mitral E to LV E' Septal Ratio 9.9 TV Peak E Velocity 54.0 cm/s PV Peak Velocity 71.0 cm/s RV Acceleration Time 0.1 s RV Ejection Time 0.2 s RV AcT/ET 0.5 FINDINGS Left Ventricle Normal left ventricular size and systolic function, EF 63 %. No regional wall motion abnormalities. Right Ventricle The right ventricle is normal in size and function. Right Atrium Right atrium not well visualized. Left Atrium The left atrium is normal in size. Mitral Valve No gross abnormalities noted Aortic Valve No gross abnormalities noted Tricuspid Valve Could not be visualized well Pulmonic Valve Pulmonic valve not well visualized. Pericardium No pericardial effusion. Aorta Normal ascending aorta dimension. CONCLUSIONS Normal left ventricular size and systolic function, EF 63 %. No regional wall motion abnormalities. Possibly normal RV size and ejection fraction. The right atrium was not visualized well. There is no pericardial effusion. No significant stenotic or regurgitant lesions in the aortic or mitral valves. Technically difficult study because of the poor ultrasonic window. Dr Lake Sandoval MD FAC (Electronically Signed) Final Date: 23 May 2021 05:43 S
--- NOTE | 2021-05-22 15:10 | P.DS_ITS ---
Discharge Providers Date of Admission: 05/12/21 16:34 Date of Discharge: May 22, 2021 Attending Provider at Admission: Diana Liu MD Attending Provider at Discharge: Tyrel Moore MD Diagnoses at Discharge Discharge Diagnosis (1) Acute hypoxemic respiratory failure due to COVID-19: Status: Acute (2) Anxiety: Status: Acute (3) Tachycardia: Status: Acute Reason for Visit Reason for Visit: SOB Hospital Course Hospital Course Saeed Thorpe is a 51 year old male with no significant PMH who presents to ED with dyspnea. Patient tested positive for COVID at [place] [facility] approx 10-12 days ago. Patient noted to be worsening and presented to ED. No chest pain, no fever, no N,V, abdominal symptoms. Patient states he was given some antibiotics. He continued to get worse. Has diffuse myalgias and weakness. Patient went to the hospital for further evaluation and management of hypoxia secondary COVID-19 pneumonia. Started on treatment with IV remdesivir, dexamethasone and inhalation treatment along with aggressive pulmonary toilet with incentive spirometer and flutter valve. His hospitalization was complicated by anxiety and tachycardia for which she received anxiolytics and was started on beta- dave. Patient has been requiring up to 2 to 3 L of oxygen supplementation currently for last 2 to 3 days. Home O2 evaluation was done prior to discharge. Because patient lives alone and has exertional desaturation at present further discharge plan were discussed in detail with the patient and he was advised to go to SNF but he was adamant of going home. As patient is doing well with physical therapy and oxygen levels have remained stable decision was made to go ahead and discharge home. Discharge details were discussed in detail with the patient. Advised to take inhalation treatment with Advair and Spiriva daily. Advised to continue using Eliquis which is a blood thinner for next 2 weeks. Advised to continue working with incentive spirometry and flutter valve while at home. Advised to continue taking dexamethasone 6 mg for next 7 days. Advised to follow-up with his primary care provider within the next 4 to 7 days. Can take his COVID-19 vaccination in 3 months. Advised to continue following social distancing and isolation protocol for next 10 days. Advised to come back to the ER if fever of more than 101 Fahrenheit, more difficulty breathing than usual or requiring higher oxygen supplementation. Physical Exam Narrative: EXAM NARRATIVE: In acute distress, hypoxia while off oxygen Const: COMMON NORMALS: no acute distress and patient oriented x3 GENERAL APPEARANCE: cooperative and ill appearing OTHER: Coughing intermittently. HENMT: COMMON NORMALS: normocephalic, atraumatic and oropharynx normal HEAD & SCALP: normocephalic and atraumatic Neck/C-Spine: COMMON NORMALS: full ROM, supple and no JVD Chest: COMMONS NORMALS: normal inspection of the chest CHEST: Yes Symmetrical chest wall rise Resp: COMMON NORMALS: normal respiratory effort and clear to auscultation bilaterally EFFORT & INSPECTION: Yes able to speak in complete sentences, Yes tachypneic and Yes Actively coughing AUSCULTATION: clear to auscultation bilaterally and rhonchi lower bilaterally Cardio: COMMON NORMALS: no JVD, regular rate, regular rhythm, S1 normal heart sound present, S2 normal heart sound present and No murmurs present (Cardio) RATE: regular rate RHYTHM: regular rhythm HEART SOUNDS: S1 normal heart sound present and S2 normal heart sound present GI: COMMON NORMALS: Normal to inspection, nondistended, normoactive bowel sounds present, Soft to palpation, non-tender and no masses PALPATION: Yes Soft to palpation Extremity: COMMON NORMALS: normal to inspection, no joint enlargement, no clubbing, cyanosis or edema, no calf tenderness and no pedal edema Neuro: COMMON NORMALS: patient oriented x3, moves all extremities, no focal motor deficits and no sensory deficits noted Psych: COMMON NORMALS: mental status grossly normal, Normal thought process present and speech normal SPEECH: Yes normal speech THOUGHT PROCESS: Normal thought process present Skin: COMMON NORMALS: no rashes or lesions noted and no wounds GENERAL SKIN EXAM: no rashes or lesions noted Discharge Data Studies Completed and Pending Completed Studies During Hospitalization Category Date Time Status CT angio chest PE protcl [id number] Stat Cat Scan 05/12/21 13:13 Completed XR chest 1V portable [id number] Stat Exams 05/12/21 13:13 Completed XR chest 1V portable [id number] Stat Exams 05/21/21 12:57 Completed Pending at discharge Category Date Time Status C Reactive Protein Q48H Lab 05/24/21 04:00 Ordered D Dimer Q48H Lab 05/24/21 04:00 Ordered MRSA by PCR Routine Lab 05/21/21 Received Sputum Culture and Gram Stain Stat Lab 05/12/21 15:37 Uncollected CV. echo complete* [id number] Routine Ultrasound 05/22/21 12:58 Taken Radiology Impressions Chest CTA 05/12/21 13:13 IMPRESSION: 1. Assessment for pulmonary embolus is compromised by streak artifact. No pulmonary embolus is identified. 2. There is aneurysmal dilatation of the ascending thoracic aorta measuring 4.0 x 4.3 cm. There is no gross evidence of rupture. No gross dissection. 3. There are extensive ground-glass and airspace opacities bilaterally.These imaging findings are commonly reported imaging features of COVID 19 pneumonia. Other processes such as Influenza pneumonia and organizing pneumonia (as can be seen with connective tissue disease and drug toxicity) can cause a similar imaging pattern. 4. Comminuted, mildly displaced fracture involving the anterior right 5th rib. 5. Mediastinal and bilateral hilar lymphadenopathy. 6. Splenomegaly. Chest X-Ray 05/21/21 12:57 IMPRESSION: 1. Decreased lung volumes due to poor inspiration. 2. Bilateral interstitial infiltrates without significant improvement. Laboratory Results WBC 14.7 10^3/uL (4.0-10.0) H 05/22/21 04:55 RBC 5.38 10^6/uL (4.1-5.3) H 05/22/21 04:55 Hgb 16.2 g/dL (11.7-16.6) 05/22/21 04:55 Hct 47.7 % (42.0-52.0) 05/22/21 04:55 MCV 88.7 fl (80-94) 05/22/21 04:55 MCH 30.1 pg (28.0-34.0) 05/22/21 04:55 MCHC 34.0 g/dL (30.0-36.0) 05/22/21 04:55 RDW 12.4 % (12.1-15.1) 05/22/21 04:55 Plt Count 521 10^3/cmm (130-400) H 05/22/21 04:55 MPV 10.7 fL (7.4-10.4) H 05/22/21 04:55 Neut % (Auto) 88.3 % 05/22/21 04:55 Lymph % (Auto) 6.2 % 05/22/21 04:55 [place] % (Auto) 3.8 % 05/22/21 04:55 Eos % (Auto) 0.0 % 05/22/21 04:55 Baso % (Auto) 0.1 % 05/22/21 04:55 Neut # (Auto) 13.02 10^3/uL (1.8-7.7) H 05/22/21 04:55 Lymph # (Auto) 0.9 10^3/uL (0.8-4.8) 05/22/21 04:55 [place] # (Auto) 0.6 10^3/uL (0.2-0.9) 05/22/21 04:55 Eos # (Auto) 0.0 10^3/uL (0.0-0.8) 05/22/21 04:55 Baso # (Auto) 0.0 10^3/uL (0.0-0.1) 05/22/21 04:55 Nucleated RBC % (auto) 0 % 05/22/21 04:55 Nucleated RBCs # 0.0 /100WBC 05/22/21 04:55 D-Dimer 0.33 ug/mIFEU (0-0.59) 05/22/21 04:55 Specimen Type Arterial 05/12/21 13:24 Sample Site Brachial, right 05/12/21 13:24 ABG pH 7.51 (7.35-7.45) H 05/12/21 13:24 ABG pCO2 25.5 mmHg (35-45) L 05/12/21 13:24 ABG pO2 53.0 mmHg (80.0-100.0) L 05/12/21 13:24 ABG HCO3 20.4 mmol/L (22-26) L 05/12/21 13:24 ABG O2 Saturation 88.9 05/12/21 13:24 ABG Base Excess -0.8 mmol/L (-2.0-2.0) 05/12/21 13:24 [place] Test N/a 05/12/21 13:24 A-a O2 Gradient 25.7 mmHg (5-10) H 05/12/21 13:24 Hematocrit 49.9 % (42-52) 05/12/21 13:24 Hgb O2 Saturation 88.0 % (95-100) L 05/12/21 13:24 Carboxyhemoglobin 0.8 %THgb (0.4-20.1) 05/12/21 13:24 Methemoglobin 0.3 % (0.4-1.5) L 05/12/21 13:24 Total Hemoglobin 16.3 g/dL (14-18) 05/12/21 13:24 Sodium 139.0 mmol/L (131-143) 05/12/21 13:24 Potassium 4.1 mmol/L (3.5-5.0) 05/12/21 13:24 Glucose 108.0 mg/dL (70-115) 05/12/21 13:24 Ionized Calcium 1.2 mmol/L (1.1-1.4) 05/12/21 13:24 O2 Delivery Device Nc 05/12/21 13:24 O2 Liters/Min 5.0 % 05/12/21 13:24 FiO2 40.0 % 05/12/21 13:24 Beam Dyer ID Ed 05/12/21 13:24 Sodium 135 mmol/L (136-145) L 05/22/21 04:55 Potassium 4.8 mmol/L (3.5-5.1) 05/22/21 04:55 Chloride 98 mmol/L (98-107) 05/22/21 04:55 Carbon Dioxide 22 mmol/L (22-29) 05/22/21 04:55 Anion Gap 19.8 (5-19) H 05/22/21 04:55 BUN 27 mg/dL (6-20) H 05/22/21 04:55 Creatinine 1.0 mg/dL (0.7-1.2) 05/22/21 04:55 GFR Calculation 78.8 mL/min (90-130) L 05/22/21 04:55 Glucose 158 mg/dL (65-115) H 05/22/21 04:55 Estimat Average Glucose 126 05/22/21 04:55 Hemoglobin A1c 6.0 % (4.0-6.0) 05/22/21 04:55 Calculated Osmolality 288 mOsm/kg (285-295) 05/22/21 04:55 Lactic Acid 1.6 mmol/L (0.5-2.2) 05/12/21 13:15 Calcium 8.5 mg/dL (8.5-10.5) 05/22/21 04:55 Iron 243 ug/dL (59-158) H 05/21/21 05:22 TIBC 350 mcg/dl 05/21/21 05:22 % Saturation 69.4 % (20-50) H 05/21/21 05:22 Unsat Iron Binding 107 ug/dL (112-347) L 05/21/21 05:22 Total Bilirubin 0.4 mg/dL (0.15-1.2) 05/22/21 04:55 AST 19 U/L (0-40) 05/22/21 04:55 ALT 43 U/L (0-41) H 05/22/21 04:55 Alkaline Phosphatase 92 IU/L (40-130) 05/22/21 04:55 Troponin T Baseline 7 ng/L (0-15) 05/12/21 13:15 Troponin T 120 Minute 6.80 ng/L (0-15) 05/12/21 14:55 Delta Troponin T -0.20 ABS# (0-10) L 05/12/21 14:55 Troponin T Hi Sens 6Hr 7.03 ng/L (0-15) 05/12/21 20:00 Troponin T Hi Sens 6Hr Delta 0.03 ng/L (0-12) 05/12/21 20:00 C-Reactive Protein 0.8 mg/L (0.0-4.9) 05/22/21 04:55 NT-Pro-B Natriuret Pep 68 pg/mL (0-125) 05/21/21 05:22 Total Protein 6.1 g/dL (6.6-8.7) L 05/22/21 04:55 Albumin 3.4 g/dL (3.5-5.2) L 05/22/21 04:55 Globulin 2.7 g/dL (1.3-4.6) 05/22/21 04:55 Triglycerides 175 mg/dL (0-150) H 05/22/21 04:55 Cholesterol 175 mg/dL (0-200) 05/22/21 04:55 LDL Cholesterol, Calc 88 mg/dL (50-129) 05/22/21 04:55 Total VLDL Cholesterol 35 mg/dL (0-30) H 05/22/21 04:55 HDL Cholesterol 52 mg/dL (60-100) L 05/22/21 04:55 Cholesterol/HDL Ratio 3.37 mg/dL (1.0-5.00) 05/22/21 04:55 Procalcitonin 0.05 ng/mL (0-0.5) 05/21/21 05:22 TSH 1.01 uIU/mL (0.27-4.20) 05/21/21 05:22 Urine Color Straw (Yellow) 05/21/21 18:20 Urine Appearance Clear (CLEAR) 05/21/21 18:20 Urine pH 6.5 (5-7) 05/21/21 18:20 Ur Specific [place] 1.010 (1.005-1.030) 05/21/21 18:20 Urine Protein Neg (Negative) 05/21/21 18:20 Urine Glucose (UA) Norm (Normal) 05/21/21 18:20 Urine Ketones Negative (Negative) 05/21/21 18:20 Urine Blood Neg (Negative) 05/21/21 18:20 Urine Nitrate Negative (Negative) 05/21/21 18:20 Urine Bilirubin Neg (Negative) 05/21/21 18:20 Urine Urobilinogen Norm mg/dL (Negative) 05/21/21 18:20 Ur Leukocyte Esterase Negative (Negative) 05/21/21 18:20 Vitals Last Vital Signs Temp 97.5 F L 05/22/21 12:00 Pulse 86 05/22/21 12:00 Resp 18 05/22/21 12:00 BP 113/72 05/22/21 12:00 Pulse Ox 93 05/22/21 12:00 Discharge Plan Discharge Patient Disposition: Home Condition: Stable Prescriptions: New Vitamin C 500 mg Tablet 500 mg PO BID Qty: 28 0RF benzonatate 100 mg Capsule 200 mg PO TID PRN (Reason: cough) Qty: 10 0RF zinc gluconate 50 mg Tablet 50 mg PO DAILY 30 Days Qty: 30 0RF metoprolol tartrate 25 mg Tablet 25 mg PO BID@0900,2100 30 Days Qty: 60 0RF ferrous gluconate 324 mg (37.5 mg iron) Tablet 324 mg PO BIDWM 30 Days Qty: 60 0RF dexamethasone 6 mg tablet 6 mg PO DAILY Qty: 14 0RF Advair Diskus 250-50 mcg/dose blister with device 1 inh inhalation BID Qty: 30 0RF Spiriva with HandiHaler 18 mcg capsule, w/inhalation device 1 cap inhalation DAILY Qty: 14 0RF Rx Instructions: puncture 1 cap using device; one dose = 2 inhalations levofloxacin 500 mg tablet 500 mg PO Q24H 3 Days Qty: 3 0RF Eliquis 2.5 mg tablet 2.5 mg PO BID Qty: 20 0RF Continued fluticasone propionate [Flonase Allergy Relief] 50 mcg/actuation spray,suspension 1 spray INTRANASAL BID Qty: 9.9 3RF Rx Instructions: administer into each nostril [id number] [Bromfed DM] 2-30-10 mg/5 mL syrup 7.5 ml PO Q6H PRN (Reason: cold symptoms) Qty: 160 0RF albuterol sulfate 90 mcg/actuation HFA aerosol inhaler 2 puff inhalation Q6H PRN (Reason: shortness of breath or wheezing) Qty: 8.5 0RF pantoprazole 40 mg tablet,delayed release (DR/EC) 40 mg PO DAILY 0RF escitalopram oxalate 10 mg tablet 10 mg PO DAILY 0RF Discontinued ibuprofen [Motrin IB] 200 mg tablet 200 mg PO Q12H MDD 400 mg PRN (Reason: pain (scale score 7-10)) Qty: 10 0RF Rx Instructions: with food cefuroxime axetil 500 mg tablet 500 mg PO BID 0RF Discharge Orders: Discharge Order (Routine); Ordered 05/22/21 Ordered By: Tyrel Moore Discharge Diet: Regular Discharge Activity: Resume usual activity Patient Instructions: Opioid Safety Activity Restrictions/Additional Instructions: Advised to take inhalation treatment with Advair and Spiriva daily. Advised to continue using Eliquis which is a blood thinner for next 2 weeks. Advised to continue working with incentive spirometry and flutter valve while at home. Advised to continue taking dexamethasone 6 mg for next 7 days. Advised to follow-up with his primary care provider within the next 4 to 7 days. Can take his COVID-19 vaccination in 3 months. Advised to continue following social distancing and isolation protocol for next 10 days. Advised to come back to the ER if fever of more than 101 Fahrenheit, more difficulty breathing than usual or requiring higher oxygen supplementation. Discharge Attestations Time Spent in Discharge Care*: greater than 30 min Status at Discharge: Cognitive status at discharge: cognitively intact , Behavioral status at discharge: cooperative , Functional status at discharge: independent ambulation , Overall status at discharge: patient is back to baseline Quality Metrics Clinical Quality Measures [ No reported AMI, CVA or VTE this stay] Coding Level of Care Code Acute Chg FW DC note Diagnoses Acute hypoxemic respiratory failure due to COVID-19 U07.1; J96.01 Anxiety F41.9 Tachycardia R00.0
--- NOTE | 2021-05-22 15:50 | PC.NURSE ---
Spoke with patient and he states that he has been sick since April 27 and was tested by Jennifer Bhardwaj MD on the 03 of May and was called on Friday the and told he was positive. [facility] office will fax us his test result. Dr. Moore notified.
[2021-05-22] MEDS: ipratropium-albuterol 3 mL Neb INHALATION ×2 (16:25→20:00)
[2021-05-22] MEDS: enoxaparin 40 mg/0.4 mL Syringe SUBCUT (16:57)
[2021-05-22] MEDS: dexamethasone 4 mg Tablet 6 MG PO (17:51)
[2021-05-22] MEDS: budesonide 0.5 mg/2 mL Neb INHALATION (20:35)
[2021-05-22] MEDS: trazodone 50 mg Tablet PO (20:42)
[2021-05-23] VITALS (13 sets, daily range): BP systolic 109–127; BP diastolic 73–79; PULSE 86–104; RESP 15–26; TEMP 36.6–36.9; O2SAT 86–95
[2021-05-23] MEDS: ipratropium-albuterol 3 mL Neb INHALATION ×5 (03:57→15:46)
--- NOTE | 2021-05-23 05:49 | PC.NURSE ---
SHIFT SUMMARY Has had a good night. Had trouble getting to sleep even after receiving po Xanax and Trazadone. Says has not slept well for several nights. Is frustrated at slow improvement and having to be here longer. O2 in place at 5l NC. SOB with exertion. Occ cough and says his chest hurts some with deep breaths & coughing. Has used IS well tonight. Has been observed using it several times. Continuous O2 sat monitor has shown to be in 90's through shift. Was medicated X1 with po Hydrocodone for pain.
[2021-05-23] MEDS: budesonide 0.5 mg/2 mL Neb INHALATION (08:42)
--- NOTE | 2021-05-23 08:45 | PC.RESP ---
RT Shift Note Frequent safety and respiratory rounds continue. Orders completed as indicated. Patient monitored pre and post treatments throughout shift. Patient [Did.] tolerate treatments appropriately. Condition [.DidNotChange]. Patient and/or sales representative printing supplies educated on respiratory treatment and medications. Patient and/or sales representative printing supplies [verbalized understanding]. Will continue to monitor patient progress.
[2021-05-23] MEDS: dexamethasone 4 mg Tablet 6 MG PO (09:27)
[2021-05-23] MEDS: ferrous gluconate 324 mg Tablet PO ×2 (09:27→17:15)
[2021-05-23] MEDS: benzonatate 100 mg Capsule 200 MG PO ×3 (09:27→20:48)
[2021-05-23] MEDS: escitalopram 10 mg Tablet PO (09:28)
[2021-05-23] MEDS: pantoprazole DR 40 mg Tablet PO (09:28)
[2021-05-23] MEDS: zinc gluconate 50 mg Tablet PO (09:28)
[2021-05-23] MEDS: ascorbic acid 500 mg Tablet 1000 MG PO ×2 (09:28→17:15)
[2021-05-23] MEDS: metoprolol tartrate 25 mg Tablet PO ×2 (09:28→20:48)
--- NOTE | 2021-05-23 15:01 | P.PN_ITS ---
Subjective Subjective: Interval history: No events overnight. Patient was to discharge yesterday but could not be as on home O2 eval desaturated down to mid eighties requiring 8 L on exertion. Today morning on room air. Still desaturating and requiring up to 6 L nasal cannula on exertion. Transitioned over to oxygen pendent on exertion requiring 5 L with oxygen pendent. Medications: Reviewed: Yes Vitals/I&O/Wt Last Vital Signs Temp 97.8 F 05/23/21 10:57 Pulse 89 05/23/21 11:49 Resp 20 H 05/23/21 11:49 BP 120/79 05/23/21 10:57 Pulse Ox 86 L 05/23/21 14:17 05/23/21 05/23/21 05/23/21 06:59 14:59 22:59 Intake Total 480 / 1140 240 / 240 Output Total 500 / 1400 Balance -20 / -260 240 / 240 Physical Exam Narrative: EXAM NARRATIVE: In acute distress, hypoxia while off oxygen Const: COMMON NORMALS: no acute distress and patient oriented x3 GENERAL APPEARANCE: cooperative and ill appearing OTHER: Coughing intermittently. HENMT: COMMON NORMALS: normocephalic, atraumatic and oropharynx normal HEAD & SCALP: normocephalic and atraumatic Neck/C-Spine: COMMON NORMALS: full ROM, supple and no JVD Chest: COMMONS NORMALS: normal inspection of the chest CHEST: Yes Symmetrical chest wall rise Resp: COMMON NORMALS: normal respiratory effort and clear to auscultation bilaterally EFFORT & INSPECTION: Yes able to speak in complete sentences, Yes tachypneic and Yes Actively coughing AUSCULTATION: clear to auscultation bilaterally and rhonchi lower bilaterally Cardio: COMMON NORMALS: no JVD, regular rate, regular rhythm, S1 normal heart sound present, S2 normal heart sound present and No murmurs present (Cardio) RATE: regular rate RHYTHM: regular rhythm HEART SOUNDS: S1 normal heart sound present and S2 normal heart sound present GI: COMMON NORMALS: Normal to inspection, nondistended, normoactive bowel sounds present, Soft to palpation, non-tender and no masses PALPATION: Yes Soft to palpation Extremity: COMMON NORMALS: normal to inspection, no joint enlargement, no clubbing, cyanosis or edema, no calf tenderness and no pedal edema Neuro: COMMON NORMALS: patient oriented x3, moves all extremities, no focal motor deficits and no sensory deficits noted Psych: COMMON NORMALS: mental status grossly normal, Normal thought process present and speech normal SPEECH: Yes normal speech THOUGHT PROCESS: Normal thought process present Skin: COMMON NORMALS: no rashes or lesions noted and no wounds GENERAL SKIN EXAM: no rashes or lesions noted Data : 05/22/21 04:55 05/22/21 04:55 Micro: Microbiology 05/21/21 Unknown MRSA Culture - Final Nose 05/21/21 18:20 Legionella Urinary Antigen - Final Urine,Voided 05/21/21 18:20 Bacterial Antigens - Final Urine Kidney A&P Assessment and plan (1) Acute hypoxemic respiratory failure due to COVID-19: Continue Decadron, completed remdesivir, continue baricitinib. Symptoms started on 04/21. Off isolation. Continue oxygen support. Lovenox VT prophylaxis. Supportive care. Status: Acute (2) Anxiety: Status: Acute (3) Tachycardia: Status: Acute Plan Hypoxia secondary to COVID-19 pneumonia: Mild to moderate disease.? Improving.? Currently on 5 L. Oxygen supplementation keeping saturation over 88%. Dexamethasone 6 mg daily. Remdesivir course of 5 days.? Currently on baricitinib.? Day 01/09. Vitamin C, zinc. Advair, Spiriva. Stop DuoNeb's and budesonide Pulmonary toilet with incentive spirometry flutter valve. Inflammatory markers including D-dimer and CRP has resolved. CT negative pulmonary embolism. Will start on Eliquis 2.5 mg twice daily and discharged on the same for next 2 weeks. Low suspicion of bacterial pneumonia. Hold off on antibiotics. Given hypoxia will try to keep patient as negative as possible. Echocardiogram shows an EF of 63%, normal RV size and function, no R WMA or valvular abnormalities. Strict input output charting, daily weights. Tachycardia: Could be secondary to hypoxia.? Will rule out atrial fibrillation.? EKG. We will do anticoagulation as per PE. Telemetry. Anxiety: Continue with home dose of Celexa. Continue trazodone as needed nightly. Xanax as needed. DVT prophylaxis-Eliquis 2.5 mg twice daily. GI prophylaxis- protonix Code status- Full Discharge planning/plan for day: Continue to ambulate with oxygen pendent multiple times during the day to monitor for exertional hypoxia. If patient continues to do well and requires less than 5 L oxygen pendent within next 24 hours can discharge. Most likely will need to follow-up closely with groundsman as an outpatient. Attestations Medical Necessity Statement*: Requires further hospitalization for management of exertional hypoxia with saturation down to mid eighties on minimal ambulation secondary to COVID-19 pneumonia while safe discharge planning is sought. 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
[2021-05-23] MEDS: HYDROcodone-acetaminophen 7.5-325 mg Tablet 1 TAB PO (19:40)
[2021-05-23] MEDS: ALPRAZolam 0.5 mg Tablet PO (19:41)
[2021-05-23] MEDS: trazodone 50 mg Tablet PO (20:48)
[2021-05-23] MEDS: apixaban 5 mg Tablet 2.5 MG PO (20:49)
[2021-05-23] MEDS: nicotine 21 mg Patch 1 PATCH TRANSDERMA (20:50)
[2021-05-24] VITALS (8 sets, daily range): BP systolic 112–186; BP diastolic 74–105; PULSE 82–94; RESP 17–20; TEMP 35.8–36.6; O2SAT 93–96
[2021-05-24 05:31] LABS: C Reactive Protein 0.5 mg/L (0.0-4.9)
--- NOTE | 2021-05-24 05:31 | PC.NURSE ---
SHIFT SUMMARY Has not had any new problems tonight. Continues to get SOB with minimal exertion/activity. Cont O2 sats have been in mid 90's all shift while in bed resting. O2 at 5l NC. Says he just feels like it is hard to take deep breaths. Does work with IS at bedside. Occ cough. Voicing frustration that he is not getting any better and feels like in some ways is going backwards. Says he is afraid he will no longer be able to do his job and will lose everything he owns. Does say that he has been having some problems for quite some time now and the Covid has just made it all worse.
[2021-05-24] MEDS: ferrous gluconate 324 mg Tablet PO (09:36)
[2021-05-24] MEDS: apixaban 5 mg Tablet 2.5 MG PO (09:36)
[2021-05-24] MEDS: benzonatate 100 mg Capsule 200 MG PO (09:36)
[2021-05-24] MEDS: pantoprazole DR 40 mg Tablet PO (09:36)
[2021-05-24] MEDS: metoprolol tartrate 25 mg Tablet PO (09:36)
[2021-05-24] MEDS: ascorbic acid 500 mg Tablet 1000 MG PO (09:36)
[2021-05-24] MEDS: zinc gluconate 50 mg Tablet PO (09:36)
[2021-05-24] MEDS: escitalopram 10 mg Tablet PO (09:36)
[2021-05-24] MEDS: dexamethasone 4 mg Tablet 6 MG PO (09:37)
--- NOTE | 2021-05-24 12:17 | PM.DCS ---
Discharge Providers Date of Admission: 05/12/21 16:34 Date of Discharge: May 24, 2021 Attending Provider at Admission: Diana Liu MD Attending Provider at Discharge: Tyrel Moore MD Diagnoses at Discharge Discharge Diagnosis (1) Acute hypoxemic respiratory failure due to COVID-19: Status: Acute (2) Anxiety: Status: Acute (3) Tachycardia: Status: Acute Reason for Visit Reason for Visit: SOB Hospital Course Hospital Course Saeed Thorpe is a 51 year old male with no significant PMH who presents to ED with dyspnea. Patient tested positive for COVID at [facility] approx 10-12 days ago. Patient noted to be worsening and presented to ED. No chest pain, no fever, no N,V, abdominal symptoms. Patient states he was given some antibiotics. He continued to get worse. Has diffuse myalgias and weakness. Patient went to the hospital for further evaluation and management of hypoxia secondary COVID-19 pneumonia. Started on treatment with IV remdesivir, dexamethasone and inhalation treatment along with aggressive pulmonary toilet with incentive spirometer and flutter valve. His hospitalization was complicated by anxiety and tachycardia for which she received anxiolytics and was started on beta-dave. Patient has been requiring up to 2 to 3 L of oxygen supplementation currently for last 2 to 3 days. Home O2 evaluation was done prior to discharge. Because patient lives alone and has exertional desaturation at present further discharge plan were discussed in detail with the patient and he was advised to go to SNF but he was adamant of going home. Discharge details were discussed in detail with the patient. Advised to take inhalation treatment with Advair and Spiriva daily. Advised to continue using Eliquis which is a blood thinner for next 2 weeks. Advised to continue working with incentive spirometry and flutter valve while at home. Advised to continue taking dexamethasone 6 mg for next 7 days. Advised to follow-up with his primary care provider within the next 4 to 7 days. Can take his COVID-19 vaccination in 3 months. Advised to continue following social distancing and isolation protocol for next 10 days. Advised to come back to the ER if fever of more than 101 Fahrenheit, more difficulty breathing than usual or requiring higher oxygen supplementation. Patient's discharge was delayed because of extensive hypoxia on minimal exertion. Patient has remained on room air at rest requiring up to 6 to 7L minimal exertion. Patient was transitioned over to oxygen pendent and was kept on oxygen pendent for more than 24 hours and ambulated multiple times. He is currently requiring up to 4 L oxygen supplementation with oxygen pendent. Patient has been described in detail regarding need for lung rehab and cyclosporine for work. He verbalized understanding. He is to follow-up with banking management consulting manager next 1 week for initiation of lung rehab as an outpatient. Physical Exam Narrative: EXAM NARRATIVE: In no acute distress, anxious, on room air at rest Const: COMMON NORMALS: no acute distress and patient oriented x3 GENERAL APPEARANCE: cooperative and ill appearing HENMT: COMMON NORMALS: normocephalic, atraumatic and oropharynx normal HEAD & SCALP: normocephalic and atraumatic Neck/C-Spine: COMMON NORMALS: full ROM, supple and no JVD Chest: COMMONS NORMALS: normal inspection of the chest CHEST: Yes Symmetrical chest wall rise Resp: COMMON NORMALS: normal respiratory effort and clear to auscultation bilaterally EFFORT & INSPECTION: Yes able to speak in complete sentences, Yes tachypneic and Yes Actively coughing AUSCULTATION: clear to auscultation bilaterally and rhonchi lower bilaterally Cardio: COMMON NORMALS: no JVD, regular rate, regular rhythm, S1 normal heart sound present, S2 normal heart sound present and No murmurs present (Cardio) RATE: regular rate RHYTHM: regular rhythm HEART SOUNDS: S1 normal heart sound present and S2 normal heart sound present GI: COMMON NORMALS: Normal to inspection, nondistended, normoactive bowel sounds present, Soft to palpation, non-tender and no masses PALPATION: Yes Soft to palpation Extremity: COMMON NORMALS: normal to inspection, no joint enlargement, no clubbing, cyanosis or edema, no calf tenderness and no pedal edema Neuro: COMMON NORMALS: patient oriented x3, moves all extremities, no focal motor deficits and no sensory deficits noted Psych: COMMON NORMALS: mental status grossly normal, Normal thought process present and speech normal SPEECH: Yes normal speech THOUGHT PROCESS: Normal thought process present Skin: COMMON NORMALS: no rashes or lesions noted and no wounds GENERAL SKIN EXAM: no rashes or lesions noted Discharge Data Studies Completed and Pending Completed Studies During Hospitalization Category Date Time Status CT angio chest PE protcl [id number] Stat Cat Scan 05/12/21 13:13 Completed XR chest 1V portable [id number] Stat Exams 05/12/21 13:13 Completed XR chest 1V portable [id number] Stat Exams 05/21/21 12:57 Completed CV. echo complete* [id number] Routine Ultrasound 05/22/21 12:58 Completed Pending at discharge Category Date Time Status Sputum Culture and Gram Stain Stat Lab 05/12/21 15:37 Uncollected Radiology Impressions Chest CTA 05/12/21 13:13 IMPRESSION: 1. Assessment for pulmonary embolus is compromised by streak artifact. No pulmonary embolus is identified. 2. There is aneurysmal dilatation of the ascending thoracic aorta measuring 4.0 x 4.3 cm. There is no gross evidence of rupture. No gross dissection. 3. There are extensive ground-glass and airspace opacities bilaterally.These imaging findings are commonly reported imaging features of COVID 19 pneumonia. Other processes such as Influenza pneumonia and organizing pneumonia (as can be seen with connective tissue disease and drug toxicity) can cause a similar imaging pattern. 4. Comminuted, mildly displaced fracture involving the anterior right 5th rib. 5. Mediastinal and bilateral hilar lymphadenopathy. 6. Splenomegaly. Chest X-Ray 05/21/21 12:57 IMPRESSION: 1. Decreased lung volumes due to poor inspiration. 2. Bilateral interstitial infiltrates without significant improvement. Laboratory Results WBC 14.7 10^3/uL (4.0-10.0) H 05/22/21 04:55 RBC 5.38 10^6/uL (4.1-5.3) H 05/22/21 04:55 Hgb 16.2 g/dL (11.7-16.6) 05/22/21 04:55 Hct 47.7 % (42.0-52.0) 05/22/21 04:55 MCV 88.7 fl (80-94) 05/22/21 04:55 MCH 30.1 pg (28.0-34.0) 05/22/21 04:55 MCHC 34.0 g/dL (30.0-36.0) 05/22/21 04:55 RDW 12.4 % (12.1-15.1) 05/22/21 04:55 Plt Count 521 10^3/cmm (130-400) H 05/22/21 04:55 MPV 10.7 fL (7.4-10.4) H 05/22/21 04:55 Neut % (Auto) 88.3 % 05/22/21 04:55 Lymph % (Auto) 6.2 % 05/22/21 04:55 Milam % (Auto) 3.8 % 05/22/21 04:55 Eos % (Auto) 0.0 % 05/22/21 04:55 Baso % (Auto) 0.1 % 05/22/21 04:55 Neut # (Auto) 13.02 10^3/uL (1.8-7.7) H 05/22/21 04:55 Lymph # (Auto) 0.9 10^3/uL (0.8-4.8) 05/22/21 04:55 Milam # (Auto) 0.6 10^3/uL (0.2-0.9) 05/22/21 04:55 Eos # (Auto) 0.0 10^3/uL (0.0-0.8) 05/22/21 04:55 Baso # (Auto) 0.0 10^3/uL (0.0-0.1) 05/22/21 04:55 Nucleated RBC % (auto) 0 % 05/22/21 04:55 Nucleated RBCs # 0.0 /100WBC 05/22/21 04:55 D-Dimer 0.30 ug/mIFEU (0-0.59) 05/24/21 04:58 Specimen Type Arterial 05/12/21 13:24 Sample Site Brachial, right 05/12/21 13:24 ABG pH 7.51 (7.35-7.45) H 05/12/21 13:24 ABG pCO2 25.5 mmHg (35-45) L 05/12/21 13:24 ABG pO2 53.0 mmHg (80.0-100.0) L 05/12/21 13:24 ABG HCO3 20.4 mmol/L (22-26) L 05/12/21 13:24 ABG O2 Saturation 88.9 05/12/21 13:24 ABG Base Excess -0.8 mmol/L (-2.0-2.0) 05/12/21 13:24 Kota Test N/a 05/12/21 13:24 A-a O2 Gradient 25.7 mmHg (5-10) H 05/12/21 13:24 Hematocrit 49.9 % (42-52) 05/12/21 13:24 Hgb O2 Saturation 88.0 % (95-100) L 05/12/21 13:24 Carboxyhemoglobin 0.8 %THgb (0.4-20.1) 05/12/21 13:24 Methemoglobin 0.3 % (0.4-1.5) L 05/12/21 13:24 Total Hemoglobin 16.3 g/dL (14-18) 05/12/21 13:24 Sodium 139.0 mmol/L (131-143) 05/12/21 13:24 Potassium 4.1 mmol/L (3.5-5.0) 05/12/21 13:24 Glucose 108.0 mg/dL (70-115) 05/12/21 13:24 Ionized Calcium 1.2 mmol/L (1.1-1.4) 05/12/21 13:24 O2 Delivery Device Nc 05/12/21 13:24 O2 Liters/Min 5.0 % 05/12/21 13:24 FiO2 40.0 % 05/12/21 13:24 Cotton Ball Bagger ID Ed 05/12/21 13:24 Sodium 135 mmol/L (136-145) L 05/22/21 04:55 Potassium 4.8 mmol/L (3.5-5.1) 05/22/21 04:55 Chloride 98 mmol/L (98-107) 05/22/21 04:55 Carbon Dioxide 22 mmol/L (22-29) 05/22/21 04:55 Anion Gap 19.8 (5-19) H 05/22/21 04:55 BUN 27 mg/dL (6-20) H 05/22/21 04:55 Creatinine 1.0 mg/dL (0.7-1.2) 05/22/21 04:55 GFR Calculation 78.8 mL/min (90-130) L 05/22/21 04:55 Glucose 158 mg/dL (65-115) H 05/22/21 04:55 Estimat Average Glucose 126 05/22/21 04:55 Hemoglobin A1c 6.0 % (4.0-6.0) 05/22/21 04:55 Calculated Osmolality 288 mOsm/kg (285-295) 05/22/21 04:55 Lactic Acid 1.6 mmol/L (0.5-2.2) 05/12/21 13:15 Calcium 8.5 mg/dL (8.5-10.5) 05/22/21 04:55 Iron 243 ug/dL (59-158) H 05/21/21 05:22 TIBC 350 mcg/dl 05/21/21 05:22 % Saturation 69.4 % (20-50) H 05/21/21 05:22 Unsat Iron Binding 107 ug/dL (112-347) L 05/21/21 05:22 Total Bilirubin 0.4 mg/dL (0.15-1.2) 05/22/21 04:55 AST 19 U/L (0-40) 05/22/21 04:55 ALT 43 U/L (0-41) H 05/22/21 04:55 Alkaline Phosphatase 92 IU/L (40-130) 05/22/21 04:55 Troponin T Baseline 7 ng/L (0-15) 05/12/21 13:15 Troponin T 120 Minute 6.80 ng/L (0-15) 05/12/21 14:55 Delta Troponin T -0.20 ABS# (0-10) L 05/12/21 14:55 Troponin T Hi Sens 6Hr 7.03 ng/L (0-15) 05/12/21 20:00 Troponin T Hi Sens 6Hr Delta 0.03 ng/L (0-12) 05/12/21 20:00 C-Reactive Protein 0.5 mg/L (0.0-4.9) 05/24/21 04:58 NT-Pro-B Natriuret Pep 68 pg/mL (0-125) 05/21/21 05:22 Total Protein 6.1 g/dL (6.6-8.7) L 05/22/21 04:55 Albumin 3.4 g/dL (3.5-5.2) L 05/22/21 04:55 Globulin 2.7 g/dL (1.3-4.6) 05/22/21 04:55 Triglycerides 175 mg/dL (0-150) H 05/22/21 04:55 Cholesterol 175 mg/dL (0-200) 05/22/21 04:55 LDL Cholesterol, Calc 88 mg/dL (50-129) 05/22/21 04:55 Total VLDL Cholesterol 35 mg/dL (0-30) H 05/22/21 04:55 HDL Cholesterol 52 mg/dL (60-100) L 05/22/21 04:55 Cholesterol/HDL Ratio 3.37 mg/dL (1.0-5.00) 05/22/21 04:55 Procalcitonin 0.05 ng/mL (0-0.5) 05/21/21 05:22 TSH 1.01 uIU/mL (0.27-4.20) 05/21/21 05:22 Urine Color Straw (Yellow) 05/21/21 18:20 Urine Appearance Clear (CLEAR) 05/21/21 18:20 Urine pH 6.5 (5-7) 05/21/21 18:20 Ur Specific [place] 1.010 (1.005-1.030) 05/21/21 18:20 Urine Protein Neg (Negative) 05/21/21 18:20 Urine Glucose (UA) Norm (Normal) 05/21/21 18:20 Urine Ketones Negative (Negative) 05/21/21 18:20 Urine Blood Neg (Negative) 05/21/21 18:20 Urine Nitrate Negative (Negative) 05/21/21 18:20 Urine Bilirubin Neg (Negative) 05/21/21 18:20 Urine Urobilinogen Norm mg/dL (Negative) 05/21/21 18:20 Ur Leukocyte Esterase Negative (Negative) 05/21/21 18:20 Vitals Last Vital Signs Temp 96.4 F L 05/24/21 08:00 Pulse 89 05/24/21 09:30 Resp 20 H 05/24/21 09:07 BP 186/105 05/24/21 08:00 Pulse Ox 95 05/24/21 09:07 Discharge Plan Discharge Patient Disposition: Home Condition: Stable Prescriptions: New Vitamin C 500 mg Tablet 500 mg PO BID Qty: 28 0RF benzonatate 100 mg Capsule 200 mg PO TID PRN (Reason: cough) Qty: 10 0RF zinc gluconate 50 mg Tablet 50 mg PO DAILY 30 Days Qty: 30 0RF metoprolol tartrate 25 mg Tablet 25 mg PO BID@0900,2100 30 Days Qty: 60 0RF ferrous gluconate 324 mg (37.5 mg iron) Tablet 324 mg PO BIDWM 30 Days Qty: 60 0RF Advair Diskus 250-50 mcg/dose blister with device 1 inh inhalation BID Qty: 30 0RF Spiriva with HandiHaler 18 mcg capsule, w/inhalation device 1 cap inhalation DAILY Qty: 14 0RF Rx Instructions: puncture 1 cap using device; one dose = 2 inhalations levofloxacin 500 mg tablet 500 mg PO Q24H 3 Days Qty: 3 0RF Eliquis 2.5 mg tablet 2.5 mg PO BID Qty: 20 0RF dexamethasone 6 mg tablet 6 mg PO DAILY Qty: 5 0RF alprazolam [Xanax] 0.5 mg tablet 0.25 mg PO BID PRN (Reason: anxiety) Qty: 14 0RF Continued fluticasone propionate [Flonase Allergy Relief] 50 mcg/actuation spray,suspension 1 spray INTRANASAL BID Qty: 9.9 3RF Rx Instructions: administer into each nostril [id number] [Bromfed DM] 2-30-10 mg/5 mL syrup 7.5 ml PO Q6H PRN (Reason: cold symptoms) Qty: 160 0RF albuterol sulfate 90 mcg/actuation HFA aerosol inhaler 2 puff inhalation Q6H PRN (Reason: shortness of breath or wheezing) Qty: 8.5 0RF pantoprazole 40 mg tablet,delayed release (DR/EC) 40 mg PO DAILY 0RF escitalopram oxalate 10 mg tablet 10 mg PO DAILY 0RF Discontinued ibuprofen [Motrin IB] 200 mg tablet 200 mg PO Q12H MDD 400 mg PRN (Reason: pain (scale score 7-10)) Qty: 10 0RF Rx Instructions: with food cefuroxime axetil 500 mg tablet 500 mg PO BID 0RF Discharge Orders: Discharge Order (Routine); Ordered 05/24/21 Ordered By: Tyrel Moore Other Ambulatory Orders: DME: Oxygen (Order) Location: None Selected Ordered By: Tyrel Moore Referrals: [facility] [Outside] DatarMiguel MD [Physician] - 4-7 days (Covid positive posttreatment, off isolation, need for extensive lab rehab, exertional desaturation) Jennifer Bhardwaj MD [Referring] - 05/29/21 11:15 am Discharge Diet: Regular Discharge Activity: Resume usual activity Patient Instructions: Benzonatate (By mouth), Iron Supplements (By mouth), Metoprolol (By mouth), Ascorbic Acid (By mouth), Dexamethasone (By mouth), Fluticasone/Salmeterol (By breathing), Tiotropium (By breathing), COVID-19 (Coronavirus Disease 2019) (GEN), Opioid Safety Activity Restrictions/Additional Instructions: Advised to take inhalation treatment with Advair and Spiriva daily. Advised to continue using Eliquis which is a blood thinner for next 2 weeks. Advised to continue working with incentive spirometry and flutter valve while at home. Advised to continue taking dexamethasone 6 mg for next 7 days. Advised to follow-up with his primary care provider within the next 4 to 7 days. Please follow-up with pulmonology within next 1 week for initiation of extensive lung rehab as an outpatient. Can take his COVID-19 vaccination in 3 months. Advised to continue following social distancing and isolation protocol for next 10 days. Advised to come back to the ER if fever of more than 101 Fahrenheit, more difficulty breathing than usual or requiring higher oxygen supplementation. Discharge Attestations Time Spent in Discharge Care*: greater than 30 min Specific Discharge Activities: educating patient, discussing with pcp/other providers, discussing with onsite case manager/social workers/dc planners, documenting/other paperwork and evaluating patient/reviewing data Status at Discharge: Cognitive status at discharge: cognitively intact, Behavioral status at discharge: cooperative, Functional status at discharge: independent ambulation, Overall status at discharge: patient is progressing back to baseline Quality Metrics Clinical Quality Measures [ No reported AMI, CVA or VTE this stay] Coding Level of Care Code Acute Chg FW DC note Diagnoses Acute hypoxemic respiratory failure due to COVID-19 U07.1; J96.01 Anxiety F41.9 Tachycardia R00.0
[2021-05-24] MEDS: alum-mag-hydroxide-sime 30 mL UDC 15 ML PO (13:38)
== END 2021-05-24 15:51 | disposition home or self-care (01) | DRG 177 ==
LOC: ER 13:47 → MEDSURG 19:13
PROVIDERS: Internal Medicine; Admitting Provider Internal Medicine; Emergency Provider Family Medicine; Visit Provider Student in an Organized Health Care Education/Training Program
DX: U07.1 COVID-19 (principal); J12.82 Pneumonia due to coronavirus disease 2019; J96.01 Acute respiratory failure with hypoxia; F41.9 Anxiety disorder, unspecified; R00.0 Tachycardia, unspecified
CPT/HCPCS: 12345; 36415; 36600; 71045; 71275; 80048; 80051; 80053; 80061; 81003; 82330; 82805; 83036; 83540; 83550; 83605; 83880; 84145; 84443; 84484; 85025; 85378; 86140; 86403; 87040; 87449; 87641; 93005; 93306; 94640; 94762; 96365; 96367; 96372; 97110; 97116; 97161; 99291; J1100; J1650; J1940; J1956; J2543; J7626; J8540; Q9967

== ENCOUNTER → 2022-02-01 10:19 | Outpatient (BNVA) | payer OTHER, SELFPAY | PROVIDERS: PCP Registered Nurse; Visit Provider Internal Medicine | DX: R76.8 Other specified abnormal immunological findings in serum (principal); M25.50 Pain in unspecified joint; L40.9 Psoriasis, unspecified; M79.18 Myalgia, other site; R21 Rash and other nonspecific skin eruption | CPT/HCPCS: 72100; 72202; 73120; 73620 ==

== ENCOUNTER 2022-02-06 10:07 | Outpatient (CLI) | payer OTHER, SELFPAY ==
[2022-02-06 10:59] LABS: Basophils # 0.1 10^3/uL (0.0-0.1); Basophils % 0.7 %; Eosinophils # 0.2 10^3/uL (0.0-0.8); Eosinophils % 2.4 %; Hematocrit 47.7 % (42.0-52.0); Hemoglobin 16.5 g/dL (11.7-16.6); Lymphocytes # 1.7 10^3/uL (0.8-4.8); Lymphocytes % 22.9 %; Mean Corpuscular HGB Conc 34.6 g/dL (30.0-36.0); Mean Corpuscular Hemoglobin 30.2 pg (28.0-34.0); Mean Corpuscular Volume 87.4 fl (80-94); Mean Platelet Volume 10.9 fL (7.4-10.4); Monocytes # 0.6 10^3/uL (0.2-0.9); Monocytes % 8.4 %; Neutrophils # 4.89 10^3/uL (1.8-7.7); Neutrophils % 65.1 %; Nucleated Red Blood Cells % 0 %; Platelet Count 268 10^3/cmm (130-400); Red Blood Count 5.46 10^6/uL (4.1-5.3); Red Cell Distribution Width 12.7 % (12.1-15.1); White Blood Count 7.5 10^3/uL (4.0-10.0)
[2022-02-06 11:01] LABS: Erythrocyte Sedimentation Rate 6 mm/hr (0-10)
[2022-02-06 11:30] LABS: Alanine Aminotransferase 23 U/L (0-41); Albumin Level 4.2 g/dL (3.5-5.2); Alkaline Phosphatase 61 U/L (40-130); Anion Gap 13.6 (5-19); Aspartate Amino Transferase 15 U/L (0-40); Blood Urea Nitrogen 17 mg/dL (6-20); Calcium 9.5 mg/dL (8.5-10.5); Carbon Dioxide 26 mmol/L (22-29); Chloride 101 mmol/L (98-107); Creatine Phosphokinase 85 U/L (39-308); Globulin 2.7 g/dL (1.3-4.6); Glomerular Filtration Rate 78.8 mL/min (90-130); Glucose 79 mg/dL (65-115); Osmolality Calculated 282 mOsm/kg (285-295); Phosphorus 2.5 mg/dL (2.5-4.5); Potassium 4.6 mmol/L (3.5-5.1); Sodium 136 mmol/L (136-145); Testosterone Total 310.8 ng/dL (193-740); Thyroid Stimulating Hormone 1.69 uIU/mL (0.27-4.20); Total Bilirubin 0.6 mg/dL (0.15-1.2); Total Protein 6.9 g/dL (6.6-8.7)
[2022-02-06 11:49] LABS: Hepatitis B Core AB, Total Non-Reactive (Nonreactive); Hepatitis B Surface Antigen Non-Reactive (Nonreactive); Hepatitis C Virus Antibody Non-Reactive (Nonreactive)
[2022-02-06 12:07] LABS: HIV 1 & 2 Antibody Non-Reactive (Non-Reactiv); HIV 1 & 2 Antigen Non-Reactive (Non-Reactiv)
[2022-02-06 12:26] LABS: Vitamin B12 433 pg/mL (232-1245)
[2022-02-07 15:22] LABS: Cyclic Citrullinated Peptide <16 UNITS
[2022-02-07 16:56] LABS: THYROID PEROXIDASE ANTIBODIES <1 IU/mL (<9)
[2022-02-07 19:26] LABS: CENTROMERE B ANTIBODY <1.0 NEG AI (<1.0 NEG); JO-1 ANTIBODY <1.0 NEG AI (<1.0 NEG); RNP ANTIBODY <1.0 NEG AI (<1.0 NEG); SCL-70 ANTIBODY <1.0 NEG AI (<1.0 NEG); SJOGREN'S ANTIBODY (SS-A) <1.0 NEG AI (<1.0 NEG); SM ANTIBODY <1.0 NEG AI (<1.0 NEG); SS-B <1.0 NEG AI (<1.0 NEG)
[2022-02-08 14:02] LABS: COMPLEMENT, TOTAL (CH50) >60 U/mL (31-60)
[2022-02-08 14:38] LABS: COMPLEMENT COMPONENT C3C 146 mg/dL (82-185); COMPLEMENT COMPONENT C4C 28 mg/dL (15-53)
[2022-02-08 22:33] LABS: Quantiferon Mitogen >10.00 IU/mL; Quantiferon Nil 0.01 IU/mL; Quantiferon TB Gold NEGATIVE (NEGATIVE)
[2022-02-09 13:27] LABS: DNA AB (DS) CRITHIDIA,IFA NEGATIVE (NEGATIVE)
[2022-02-12 08:48] LABS: ANA SCREEN, IFA POSITIVE (NEGATIVE); Anti-Nuclear AB Pattern #2 Nuclear, Speckled
== END 2022-02-06 10:08 | disposition home or self-care (01) ==
LOC: LAB 10:09
PROVIDERS: PCP Registered Nurse; Visit Provider Internal Medicine
DX: R76.8 Other specified abnormal immunological findings in serum (principal)
CPT/HCPCS: 36415; 80053; 82550; 82607; 83516; 84100; 84403; 84443; 85025; 85651; 86140; 86160; 86162; 86200; 86235; 86255; 86376; 86431; 86480; 86704; 86803; 87340; 87806

== ENCOUNTER → 2023-08-18 11:33 | Outpatient (BNVA) | payer OTHER, SELFPAY | PROVIDERS: PCP Registered Nurse; Visit Provider Nurse Practitioner Family | DX: R06.02 Shortness of breath (principal); R53.83 Other fatigue; R76.8 Other specified abnormal immunological findings in serum | CPT/HCPCS: 71046; 80053; 84443; 85025 ==

== ENCOUNTER → 2024-03-06 10:00 | Outpatient (BNVA) | payer OTHER, SELFPAY | PROVIDERS: PCP Registered Nurse; Visit Provider Nurse Practitioner | DX: R05.9 Cough, unspecified (principal) | CPT/HCPCS: 87400; 87426 ==